=== PATIENT | male | born 1985 | race Caucasian/White ===

== ENCOUNTER 2017-04-05 22:47 | Inpatient (IN) | payer MEDICAID, OTHER ==
[2017-04-05] MEDS: Sodium Chloride 0.9% 10 ML Syringe FLUSH PRN (23:11)
[2017-04-05] MEDS ORDERED: Sodium Chloride 0.9% 1,000 ML IV SCH (23:15)
[2017-04-06] MEDS ORDERED: LORazepam 2 MG/ML MDV IVPUSH ONE (00:07)
--- NOTE | 2017-04-06 00:50 | EDM.PDOC ---
ED HPI GENERAL MEDICAL PROBLEM - General Chief Complaint: Behavioral/Psych Stated Complaint: POISON INGESTION Time Seen by Provider: 04/05/17 22:53 Source of Information: Reports: Patient, RN Notes Reviewed - History of Present Illness INITIAL COMMENTS - FREE TEXT/NARRATIVE: 31-year-old male has been brought in by a family member after ingesting 2-4 ounces of insecticide. He does have long-standing history of depression. He states that she he's been feeling more depressed than usual recently. He admits that he did drink some alcohol last evening. The insecticide was from a bottle that they had at his residence. He also did tell one of our RNs that he did use methamphetamine yesterday. He denies being on any type of antidepressant or antipsychotic medication at this time. He has been feeling nauseated. He has had some dry heaves but has not vomited. He has no chest or abdominal pain. No difficulty breathing. He does feel mildly lightheaded and dizzy. - Related Data Allergies Allergy/AdvReac Type Severity Reaction Status Date / Time No Known Allergies Allergy Verified 04/05/17 22:49 Past Medical History - Past Health History Medical/Surgical History: Denies Medical/Surgical History Cardiovascular History: Reports: Hypertension, Other (See Below) Other Cardiovascular History: Enlarged L) ventricle. Psychiatric History: Reports: Anxiety, Depression - Past Surgical History GI Surgical History: Reports: Hernia Repair/Other Social & Family History - Tobacco Use Smoking Status *Q: Current Every Day Smoker Years of Tobacco use: 15 Packs/Tins Daily: 0.1 - Alcohol Use Days Per Week of Alcohol Use: 1 Number of Drinks Per Day: 6 Total Drinks Per Week: 6 - Recreational Drug Use Recreational Drug Use: Yes Drug Use in Last 12 Months: Yes Recreational Drug Type: Reports: Cocaine, Methamphetamine, Oxycodone ED ROS GENERAL - Review of Systems Review Of Systems: See Below Constitutional: Denies: Fever, Chills HEENT: Denies: Throat Pain, Vision Change Respiratory: Denies: Shortness of Breath, Wheezing, Pleuritic Chest Pain Cardiovascular: Denies: Chest Pain GI/Abdominal: Reports: Nausea, Vomiting (Dry heaves). Denies: Abdominal Pain Musculoskeletal: Denies: Neck Pain, Shoulder Pain, Back Pain, Muscle Pain Skin: Reports: No Symptoms Neurological: Reports: Dizziness. Denies: Numbness, Tingling, Trouble Speaking Psychiatric: Reports: Depression, Suicidal Ideation ED EXAM, BEHAVIORAL HEALTH - Physical Exam Exam: See Below General Appearance: Alert, Anxious (My), Other (Intoxicated) Eye Exam: Bilateral Eye: PERRL Nose: Normal Inspection Throat/Mouth: Normal Inspection, Normal Oropharynx Head: Atraumatic. No: Facial Swelling Neck: Supple Respiratory/Chest: No Respiratory Distress, Lungs Clear, Normal Breath Sounds Cardiovascular: Regular Rate, Rhythm, Tachycardia GI/Abdominal: Soft, Non-Tender. No: Guarding Extremities: No: Pedal Edema, Leg Pain Neurological: Alert, No Motor/Sensory Deficits, Other (Intoxicated but not super drowsy, he does answer simple questions and cooperative with exam) Psychiatric: Alert, Restless, Tearful, Suicidal Thoughts (States he would feel better if he could just go to sleep and not wake up) Skin Exam: Warm, Dry, Normal color EKG INTERPRETATION EKG Date: 04/05/17 Rhythm: NSR [place]: normal P-wave: present QRS: normal ST-T: normal COURSE, BEHAVIORAL HEALTH COMP - Course Vital Signs: Last Vital Signs Temp 96.8 F 04/05/17 22:50 Pulse 107 H 04/05/17 22:50 Resp 18 04/05/17 22:50 BP 140/94 H 04/05/17 22:50 Pulse Ox 98 04/05/17 22:50 Orders, Labs, Meds: Active Orders 24 hr Category Date Time Status Admission Status [Patient Status] [ADT] Routine ADT 04/06/17 01:15 Active EKG 12 Lead [EKG Documentation Completion] [RC] STAT Care 04/05/17 23:00 Active Chest 1V Frontal [CR] Stat Exams 04/05/17 23:00 Taken DRUG SCREEN, URINE [URCHEM] Stat Lab 04/05/17 02:26 Received Sodium Chloride 0.9% [Normal Saline] 1,000 ml Med 04/05/17 23:15 Active IV ONETIME Sodium Chloride 0.9% [Normal Saline] 1,000 ml Med 04/06/17 01:00 Active IV ONETIME Sodium Chloride 0.9% [Saline Flush] Med 04/05/17 23:02 Active 10 ml FLUSH ASDIRECTED PRN Peripheral IV Insertion Adult [OM.PC] Stat Oth 04/05/17 23:01 Ordered Medication Orders Sodium Chloride (Normal Saline) 1,000 mls @ 999 mls/hr IV ONETIME TEDDY Last Admin: 04/05/17 23:09 Dose: 999 mls/hr Sodium Chloride (Normal Saline) 1,000 mls @ 999 mls/hr IV ONETIME TEDDY Last Admin: 04/06/17 00:57 Dose: 999 mls/hr Sodium Chloride (Normal Saline) 1,000 mls @ 150 mls/hr IV ASDIRECTED TEDDY Lorazepam (Ativan) 1 mg IVPUSH Q4H PRN PRN Reason: Anxiety Sodium Chloride (Saline Flush) 10 ml FLUSH ASDIRECTED PRN PRN Reason: Keep Vein Open Last Admin: 04/05/17 23:11 Dose: 10 ml Laboratory Tests 04/05/17 04/05/17 04/05/17 Range/Units 02:26 23:17 23:17 WBC 11.57 H (4.23-9.07) K/mm3 RBC 5.06 (4.63-6.08) M/mm3 Hgb 15.9 (13.7-17.5) gm/L Hct 45.9 (40.1-51.0) % MCV 90.7 (79.0-92.2) fl MCH 31.4 (25.7-32.2) pg MCHC 34.6 (32.2-35.5) g/dl RDW Std Deviation 41.3 (35.1-43.9) fL Plt Count 330 (163-337) K/mm3 MPV 10.0 (9.4-12.3) fl Neut % (Auto) 44.5 (34.0-67.9) % Lymph % (Auto) 45.5 (21.8-53.1) % [place] % (Auto) 8.4 (5.3-12.2) % Eos % (Auto) 1.1 (0.8-7.0) Baso % (Auto) 0.3 (0.1-1.2) % Neut # (Auto) 5.15 (1.78-5.38) K/mm3 Lymph # (Auto) 5.26 H (1.32-3.57) K/mm3 [place] # (Auto) 0.97 H (0.30-0.82) K/mm3 Eos # (Auto) 0.13 (0.04-0.54) K/mm3 Baso # (Auto) 0.04 (0.01-0.08) K/mm3 Manual Slide Review Normal smear Sodium 143 (136-145) mEq/L Potassium 3.8 (3.5-5.1) mEq/L Chloride 106 (98-107) mEq/L Carbon Dioxide 24 (21-32) mEq/L Anion Gap 16.8 H (5-15) BUN 10 (7-18) mg/dL Creatinine 1.1 (0.7-1.3) mg/dL Est Cr Clr Drug Dosing 105.82 mL/min Estimated GFR (MDRD) > 60 (>60) mL/min BUN/Creatinine Ratio 9.1 L (14-18) Glucose 100 (74-106) mg/dL Lactic Acid (0.4-2.0) mmol/L Calcium 8.6 (8.5-10.1) mg/dL Total Bilirubin 0.7 (0.2-1.0) mg/dL AST 29 (15-37) U/L ALT 43 (16-63) U/L Alkaline Phosphatase 61 (46-116) U/L Total Protein 7.4 (6.4-8.2) g/dl Albumin 4.0 (3.4-5.0) g/dl Globulin 3.4 gm/dL Albumin/Globulin Ratio 1.2 (1-2) Urine Color Light yellow (Yellow) Urine Appearance Clear (Clear) Urine pH 6.0 (5.0-8.0) Ur Specific [place] 1.015 (1.005-1.030) Urine Protein Negative (Negative) Urine Glucose (UA) Negative (Negative) Urine Ketones Negative (Negative) Urine Occult Blood Negative (Negative) Urine Nitrite Negative (Negative) Urine Bilirubin Negative (Negative) Urine Urobilinogen 0.2 (0.2-1.0) Ur Leukocyte Esterase Negative (Negative) Ethyl Alcohol 0.20 (0.00) gm% // Range/Units 23:17 WBC (4.23-9.07) K/mm3 RBC (4.63-6.08) M/mm3 Hgb (13.7-17.5) gm/L Hct (40.1-51.0) % MCV (79.0-92.2) fl MCH (25.7-32.2) pg MCHC (32.2-35.5) g/dl RDW Std Deviation (35.1-43.9) fL Plt Count (163-337) K/mm3 MPV (9.4-12.3) fl Neut % (Auto) (34.0-67.9) % Lymph % (Auto) (21.8-53.1) % [place] % (Auto) (5.3-12.2) % Eos % (Auto) (0.8-7.0) Baso % (Auto) (0.1-1.2) % Neut # (Auto) (1.78-5.38) K/mm3 Lymph # (Auto) (1.32-3.57) K/mm3 [place] # (Auto) (0.30-0.82) K/mm3 Eos # (Auto) (0.04-0.54) K/mm3 Baso # (Auto) (0.01-0.08) K/mm3 Manual Slide Review Sodium (136-145) mEq/L Potassium (3.5-5.1) mEq/L Chloride (98-107) mEq/L Carbon Dioxide (21-32) mEq/L Anion Gap (5-15) BUN (7-18) mg/dL Creatinine (0.7-1.3) mg/dL Est Cr Clr Drug Dosing mL/min Estimated GFR (MDRD) (>60) mL/min BUN/Creatinine Ratio (14-18) Glucose (74-106) mg/dL Lactic Acid 1.6 (0.4-2.0) mmol/L Calcium (8.5-10.1) mg/dL Total Bilirubin (0.2-1.0) mg/dL AST (15-37) U/L ALT (16-63) U/L Alkaline Phosphatase (46-116) U/L Total Protein (6.4-8.2) g/dl Albumin (3.4-5.0) g/dl Globulin gm/dL Albumin/Globulin Ratio (1-2) Urine Color (Yellow) Urine Appearance (Clear) Urine pH (5.0-8.0) Ur Specific [place] (1.005-1.030) Urine Protein (Negative) Urine Glucose (UA) (Negative) Urine Ketones (Negative) Urine Occult Blood (Negative) Urine Nitrite (Negative) Urine Bilirubin (Negative) Urine Urobilinogen (0.2-1.0) Ur Leukocyte Esterase (Negative) Ethyl Alcohol (0.00) gm% Medications Generic Name Dose Route Start Last Admin Trade Name Freq PRN Reason Stop Dose Admin Sodium Chloride 1,000 mls @ 999 mls/hr 04/05/17 23:15 04/05/17 23:09 Normal Saline IV 999 mls/hr ONETIME TEDDY Administration Sodium Chloride 1,000 mls @ 999 mls/hr 04/06/17 01:00 04/06/17 00:57 Normal Saline IV 999 mls/hr ONETIME TEDDY Administration Sodium Chloride 1,000 mls @ 150 mls/hr 04/06/17 02:45 Normal Saline IV ASDIRECTED TEDDY Lorazepam 1 mg 04/06/17 02:46 Ativan IVPUSH Q4H PRN Anxiety Sodium Chloride 10 ml 04/05/17 23:02 04/05/17 23:11 Saline Flush FLUSH 10 ml ASDIRECTED PRN Administration Keep Vein Open Discontinued Medications Generic Name Dose Route Start Last Admin Trade Name Freq PRN Reason Stop Dose Admin Lorazepam 1 mg 04/06/17 00:07 04/06/17 00:15 Ativan IVPUSH 04/06/17 00:08 1 mg ONETIME ONE Administration Re-Assessment/Re-Exam: Vital signs remained stable while in the ED. We did contact poison control regarding the insecticide that he ingested. The active ingredient off of the label of the insecticide container was bifenthrin, 6.9%. They indicate that the overall toxicity is relatively low for this product. The main risk is seizures. The greatest risk is in the first one or 2 hours. He presented to our ED approximately 2-3 hours after ingesting this product. We watched him for around 2 hours before arranging for admission. Of note blood alcohol was 0.2%. Anion gap very mildly elevated, labs otherwise normal. He continued to have no chest pain, difficulty breathing. He did have a couple episodes of dry heaves but never did vomit. When asked about depression and suicidal radiation he became tearful, stated he would just like to go to sleep and "not wake up". He did become agitated and threatened to leave on one occasion. We did give Ativan 1 mg IV and that did help him relax. We also have been running IV fluid. He was on his second liter at time of admission. When I did discuss with him the need for hospital admission to allow the insecticide to metabolize out of his system he was okay with that. I did write for a 24-hour emergency alf due to possible flight risk. He has been admitted to ICU for further monitoring and treatment. Departure - Departure Time of Disposition: 01:00 Disposition: Admitted As Inpatient 65 Clinical Impression: Suicide attempt Alcohol intoxication Qualifiers: Complication of substance-induced condition: uncomplicated Qualified Code(s): F10.920 - Alcohol use, unspecified with intoxication, uncomplicated Ingestion of foreign substance Qualifiers: Encounter type: initial encounter Qualified Code(s): T18.9XXA - Foreign body of alimentary tract, part unspecified, initial encounter - Discharge Information ED Communication - Discussed Case With (1) Discussed Case With (1): Admitting Provider (Dr Bell, decision to admit at about 0100) - My Orders Last 24 Hours: My Active Orders 04/05/17 02:26 DRUG SCREEN, URINE [URCHEM] Stat 04/05/17 23:00 EKG 12 Lead [EKG Documentation Completion] [RC] STAT Chest 1V Frontal [CR] Stat 04/05/17 23:01 Peripheral IV Insertion Adult [OM.PC] Stat 04/05/17 23:02 Sodium Chloride 0.9% [Saline Flush] 10 ml FLUSH ASDIRECTED PRN 04/05/17 23:15 Sodium Chloride 0.9% [Normal Saline] 1,000 ml IV ONETIME 04/06/17 01:00 Sodium Chloride 0.9% [Normal Saline] 1,000 ml IV ONETIME 04/06/17 01:15 Admission Status [Patient Status] [ADT] Routine - Assessment/Plan Last 24 Hours: My Active Orders 04/05/17 02:26 DRUG SCREEN, URINE [URCHEM] Stat 04/05/17 23:00 EKG 12 Lead [EKG Documentation Completion] [RC] STAT Chest 1V Frontal [CR] Stat 04/05/17 23:01 Peripheral IV Insertion Adult [OM.PC] Stat 04/05/17 23:02 Sodium Chloride 0.9% [Saline Flush] 10 ml FLUSH ASDIRECTED PRN 04/05/17 23:15 Sodium Chloride 0.9% [Normal Saline] 1,000 ml IV ONETIME 04/06/17 01:00 Sodium Chloride 0.9% [Normal Saline] 1,000 ml IV ONETIME 04/06/17 01:15 Admission Status [Patient Status] [ADT] Routine
[2017-04-06] MEDS ORDERED: Sodium Chloride 0.9% 1,000 ML IV SCH ×2 (01:00→02:45)
[2017-04-06] MEDS ORDERED: LORazepam 2 MG/ML MDV IVPUSH PRN (02:46)
--- NOTE | 2017-04-06 04:12 | PCM.HP ---
H&P History of Present Illness - General Date of Service: 04/06/17 Admit Problem/Dx: AMS and Attempted Suicide by Ingestion of Toxic Substance Source of Information: Patient, Old Records, Provider, RN Notes Reviewed History Limitations: Reports: Altered Mental Status, Intoxication - History of Present Illness Initial Comments - Free Text/Narative: This is a 31 yo white male with no significant past medical hx/o who comes in to ED for further evaluation after ingesting 2-4 ounces of insecticide. The chemical he took was presumed to be something they have at home. Patient admits to taking Clonazepam and washing it down with ETOH. He had 2 shots of fireball last night. It however unclear how bad and how long is his drinking habit. In ED he reports dry heaving, dizziness and having lightheadedness. Patient carries a long standing hx/o MDD. He denies being on any psychotropic medications. He also does not follow anyone for his underlying psychiatric illness. Per ED notes, he also admits to taking methamphetamine yesterday. No family members present at bedside at the time of my examination. His initial work up in ED shows a CBC remarkable for WBC 11.57. His chemistry is significant for AG 16.8. UA was negative to suggest UTI. His UDS shows pos for Amphetamine/Methamphetamine and THC. ISIDORO level is 0.20. CXR report reads no acute abnormal findings. Patient received initial treatment in ED before he was sent to the unit for further treatment. Poison control was also consulted for further input. He was admitted sometime midnight. - Related Data Allergies/Adverse Reactions: Allergies Allergy/AdvReac Type Severity Reaction Status Date / Time No Known Allergies Allergy Verified 04/05/17 22:49 Past Medical History - Past Health History Medical/Surgical History: Denies Medical/Surgical History Cardiovascular History: Reports: Hypertension, Other (See Below) Other Cardiovascular History: Enlarged L) ventricle. Psychiatric History: Reports: Anxiety, Depression - Past Surgical History GI Surgical History: Reports: Hernia Repair/Other Social & Family History - Tobacco Use Smoking Status *Q: Current Every Day Smoker Years of Tobacco use: 15 Packs/Tins Daily: 0.1 Second Hand Smoke Exposure: No - Caffeine Use Caffeine Use: Reports: Tea - Alcohol Use Days Per Week of Alcohol Use: 1 Number of Drinks Per Day: 6 Total Drinks Per Week: 6 Date of Last Drink: 04/05/17 Time of Last Drink: 19:00 - Recreational Drug Use Recreational Drug Use: Yes Drug Use in Last 12 Months: Yes Recreational Drug Type: Reports: Cocaine, Methamphetamine, Oxycodone Recreational Drug Use Frequency: Monthly Recreational Drug Last Use: 04/04/17 H&P Review of Systems - Review of Systems: Review Of Systems: See Below General: Reports: Diaphoresis. Denies: Fever, Chills HEENT: Denies: Contact Lenses Pulmonary: Denies: Shortness of Breath Cardiovascular: Reports: Blood Pressure Problem. Denies: Chest Pain, Edema, Lightheadedness, Syncope Gastrointestinal: Denies: Abdominal Pain, Nausea, Vomiting Genitourinary: Reports: No Symptoms Musculoskeletal: Reports: No Symptoms Skin: Denies: Cyanosis, Jaundice, Pallor, Pruritis, Rash, Erythema Psychiatric: Reports: Suicidal Ideation. Denies: Confusion, Anxiety, Hallucinations, Homicidal Ideation Neurological: Reports: Weakness. Denies: Difficulty Walking, Gait Disturbance Hematologic/Lymphatic: Reports: No Symptoms Immunologic: Reports: No Symptoms Review of Systems Comment:: He is a poor historian. Exam - Exam Exam: See Below - Vital Signs Vital Signs: Last Vital Signs Temp 36.0 C 04/05/17 22:50 Pulse 107 H 04/05/17 22:50 Resp 18 04/05/17 22:50 BP 140/94 H 04/05/17 22:50 Pulse Ox 98 04/05/17 22:50 Weight: 119.295 kg - Exam General: Moderate Distress, Sedated, Other (Awake) HEENT: Conjunctiva Clear, EACs Clear, Hearing Intact, Mucosa Moist & [place], Nares Patent, Normal Nasal Septum, Posterior Pharynx Clear, Pupils Equal, Pupils Reactive, Other (stutters when he talks). No: EOMI Neck: Supple, Trachea Midline Lungs: Clear to Auscultation, Normal Respiratory Effort Cardiovascular: Regular Rhythm, Tachycardia Abdomen: Normal Bowel Sounds, Soft. No: Organomegaly, Tenderness (Male) Exam: Deferred Rectal (Males) Exam: Deferred Back Exam: Normal Inspection, Decreased Range of Motion Extremities: Normal Inspection, Normal Pulses Peripheral Pulses: 3+: Posterior Tibial (L), Posterior Tibial (R), Dorsalis Pedis (L), Dorsalis Pedis (R) Skin: Warm, Dry, Intact Neuro Extensive - Motor, Sensory, Reflexes: CN II-XII Intact (limited by AMS), Abnormal Gait Psychiatric: Withdrawal Symptoms, Other (Incoherent) Physical Exam Comments:: Limited exam due to AMS and Withdrawal Symptoms - Patient Data Result Diagrams: 04/06/17 05:35 04/06/17 12:10 EKG INTERPRETATION EKG Date: 04/05/17 Time: 11:10 Rhythm: NSR [place]: normal P-wave: present QRS: normal ST-T: normal QT: prolonged Comparison: NA - no prior EKG *Q Meaningful Use (ADM) - VTE *Q VTE Criteria *Q: - Stroke *Q Stroke Criteria *Q: - AMI *Q AMI Criteria *Q: Problem List Initiated/Reviewed/Updated: Yes Orders Last 24hrs: Active Orders 24 hr Category Date Time Status Up With Assistance [RC] , Care 04/06/17 02:43 Active Clear Liquid Diet [DIET] Diet 04/06/17 Breakfast Active LORazepam [Ativan] Med 04/06/17 02:46 Active 1 mg IVPUSH Q4H PRN Sodium Chloride 0.9% [Normal Saline] 1,000 ml Med 04/06/17 02:45 Active IV ASDIRECTED Medication Orders Sodium Chloride (Normal Saline) 1,000 mls @ 999 mls/hr IV ONETIME TEDDY Last Admin: 04/05/17 23:09 Dose: 999 mls/hr Sodium Chloride (Normal Saline) 1,000 mls @ 999 mls/hr IV ONETIME TEDDY Last Admin: 04/06/17 00:57 Dose: 999 mls/hr Sodium Chloride (Normal Saline) 1,000 mls @ 150 mls/hr IV ASDIRECTED TEDDY Lorazepam (Ativan) 1 mg IVPUSH Q4H PRN PRN Reason: Anxiety Sodium Chloride (Saline Flush) 10 ml FLUSH ASDIRECTED PRN PRN Reason: Keep Vein Open Last Admin: 04/05/17 23:11 Dose: 10 ml Assessment/Plan Comment:: Assessment/Plan: Acute Suicide Attempt via Ingestion of Toxic Substance - 2-4 ounces of insecticide - Poison control consulted - Supportive Care Probable Organo-Phosphate Poisoning - Supportive Care - He received bedside bath per overnight nurse to remove further organic substance on him - Atropin IVP PNR for Symptomatic control - Pharmacy don't carry Pralidoxime plus unable to get ahold of on-call local pharmacy ETOH Withdrawal Symptoms - ISIDORO level 0.20 - He usually drinks 3-6 beers QOD but drank 2 shots of fire ball per patient - CIWA protocol - Seroquel/Librium/Clonidine/Topamax - Hydralzine and IVP BB for HR/BP control - Ativan for Abortive Seizure and Withdrawal Symptoms Poly-Substance Abuse - UDS: pos Amphetamine/Methamphetamine and THC - Admits to taking Clonazepam 5mg x1 plus ETOH last evening - SA consult Tobacco Dependence - Nicotine patch - Counseled on Smoking Cessation Hx/o MDD - Unknown if he is on any psychotropic medications at this time - No family members present at bedside - Tele-psych consult Seizures - Has had 2 episode already per nurse - Likely from combination above - Seizure precautions - Topamax for prevention - Ativan for Abortive Medication Plan: Admit to ICU MVI, Folic, Acid and Thiamine CIWA protocol Ativan for Abortive Seizure and Withdrawal Symptoms PRN meds for Withdrawal Symptoms Aspiration/Seizure Precautions SW/CM d/c planning SA/Pysch consult Code Status: 1 ICU nurse called me very scraper loader operator to come and see him immediately as he appears to be getting worse. His current prognosis is guarded to serious due to unknown type of farm/house chemical he took +/- Amphetamine/Methamphetamine and ETOH he took concomitantly. He is a very poor historian.
[2017-04-06] MEDS ORDERED: Atropine 0.1 MG/ML 10 ML Syringe ONE (04:19)
[2017-04-06] MEDS ORDERED: Promethazine 12.5 MG in Sodium Chloride 0.9% 50 ML IV PRN (04:36)
[2017-04-06] MEDS ORDERED: Albuterol/Ipratropium 3.0-0.5 MG/3 ML Neb Soln NEB PRN (04:36)
[2017-04-06] MEDS ORDERED: Polyethylene Glycol 3350 Powder 17 GM Packet PO PRN (04:36)
[2017-04-06] MEDS ORDERED: Acetaminophen/HYDROcodone 325-5 MG Tab PO PRN (04:36)
[2017-04-06] MEDS ORDERED: Bisacodyl 5 MG Tab PO PRN (04:36)
[2017-04-06] MEDS ORDERED: Docusate Sodium 100 MG Cap PO PRN (04:36)
[2017-04-06] MEDS ORDERED: Metoprolol Tartrate 5 MG/5 ML SDV IVPUSH PRN (04:36)
[2017-04-06] MEDS ORDERED: hydrALAZINE 20 MG/ML SDV IVPUSH PRN (04:36)
[2017-04-06] MEDS ORDERED: Acetaminophen 325 MG Tab PO PRN (04:36)
[2017-04-06] MEDS ORDERED: Folic Acid 1 MG Tab PO ONE (04:40)
[2017-04-06] MEDS ORDERED: Multivitamins,Therapeutic Tab PO ONE (04:40)
[2017-04-06] MEDS ORDERED: Thiamine 200 MG/2 ML MDV IV ONE (04:41)
[2017-04-06] MEDS ORDERED: Atropine 0.1 MG/ML 10 ML Syringe IVPUSH ONE (04:41)
[2017-04-06] MEDS ORDERED: QUEtiapine 25 MG Tab PO ONE (04:43)
[2017-04-06] MEDS ORDERED: chlordiazePOXIDE 25 MG Cap PO ONE (04:44)
[2017-04-06] MEDS ORDERED: cloNIDine 0.1 MG Tab PO PRN (04:46)
[2017-04-06] MEDS ORDERED: Famotidine 20 MG/2 ML SDV IVPUSH ONE (04:47)
[2017-04-06] MEDS ORDERED: Famotidine 20 MG Tab PO SCH (05:00)
[2017-04-06] MEDS ORDERED: Pneumococcal Polyvalent-23 Vaccine 0.5 ML SDV SUBCUT ONE (06:04)
[2017-04-06] MEDS ORDERED: Magnesium Oxide 400 MG Tab PO ONE (07:15)
[2017-04-06] MEDS: Enoxaparin 40 MG/0.4 ML Syringe SUBCUT SCH ×2 (07:33→07:53)
[2017-04-06] MEDS: Topiramate 25 MG Tab PO SCH ×3 (07:51→20:32)
[2017-04-06] MEDS: Ondansetron 4 MG/2 ML SDV IV PRN ×2 (07:52→13:58)
[2017-04-06] MEDS: LORazepam 2 MG/ML MDV IVPUSH PRN ×6 (07:52→18:46)
[2017-04-06] MEDS: Sodium Chloride 0.9% 1,000 ML IV SCH ×2 (08:14→12:32)
--- NOTE | 2017-04-06 09:24 | CR ---
Chest: Frontal view of the chest was obtained. Comparison: No previous chest x-ray. Heart size and mediastinum are normal. Lungs are clear. Bony structures are grossly intact. Impression: 1. Nothing acute is identified on frontal chest x-ray. Diagnostic code #1
[2017-04-06] MEDS: chlordiazePOXIDE 25 MG Cap PO PRN (10:12)
--- NOTE | 2017-04-06 11:41 | PCM.SN ---
- Free Text/Narrative Note: Patient is not doing well clinically. He is severely agitated with tremors and vitals are unstable with significantly elevated BP and HR. He is profusely soaked and wet. His mentation is altered with mumbled speech. He has had a few seizure activities since front desk representative. Patient is in severe withdrawals (DT). At this point, he needs to have a stat respiratory support. After talking to his mom and informing her our plan of care at this moment, patient was then immediately intubated.
--- NOTE | 2017-04-06 11:43 | CR ---
Chest: Frontal view of the chest was obtained. Comparison: Previous chest x-ray 04/05/17. Heart size and mediastinum are within normal limits for technique. Endotracheal tube is seen with tip lying at the level of the clavicles. Nasogastric tube courses through the mediastinum into the stomach. Lungs are clear. Impression: 1. Tip of endotracheal tube and nasogastric tube as noted above. 2. Nothing acute is otherwise seen on frontal chest x-ray. Diagnostic code #w
--- NOTE | 2017-04-06 11:45 | PCM.PRNOTE ---
- Free Text/Narrative Note: Endotracheal Intubation Date: 04/06/2017 Time: 118 pm Indication: Respiratory Distress, Seizures and Severe Agitation. Attending: Renetta Bell DO A time-out was completed verifying correct patient, procedure, site, positioning , and special equipment if applicable. The patient was placed in a flat position. Sedation was obtained using Versed 5mg, and additionally with Rocuronium 100 mg. The patient was easily ventilated using an ambu bag. The MAC 4 BLADE was used and inserted into the oropharynx at which time there was a Grade 1 view of the vocal cords. An 8-maldivian endotracheal tube was inserted and visualized going through the vocal cords. The stylette was removed. Colorimetric change was visualized on the CO2 meter. Breath sounds were heard in both lung perdomo equally. The endotracheal tube was placed at 23 cm, measured at the teeth. A chest x-ray was ordered to assess for pneumothorax and verify endotrachealtube placement.
[2017-04-06] MEDS ORDERED: Rocuronium 50 MG/5 ML Vial IVPUSH ONE (12:51)
[2017-04-06] MEDS ORDERED: Midazolam 1 MG/ML 5 ML SDV IVPUSH ONE (12:51)
[2017-04-06] MEDS ORDERED: fentaNYL 2,500 MCG in Sodium Chloride 0.9% 200 ML IV SCH (13:00)
[2017-04-06] MEDS ORDERED: Magnesium Sulfate/Water 2 GM in Premix Bag 1 BAG IV ONE (13:39)
[2017-04-06] MEDS ORDERED: Midazolam 1 MG/ML 5 ML SDV ONE (14:00)
[2017-04-06] MEDS ORDERED: Rocuronium 50 MG/5 ML Vial ONE (14:00)
[2017-04-06] MEDS: Dextrose 5%-0.9% NaCl 1,000 ML IV SCH ×2 (16:32→20:31)
[2017-04-06] MEDS ORDERED: Thiamine 100 MG in Sodium Chloride 0.9% 100 ML IV ONE (17:33)
[2017-04-06] MEDS: Pantoprazole 80 MG in Sodium Chloride 0.9% 100 ML IV SCH (20:31)
[2017-04-06] MEDS: Famotidine 20 MG/2 ML SDV IVPUSH SCH (20:32)
[2017-04-06] MEDS ORDERED: Thiamine 100 MG Tab PO SCH (21:00)
[2017-04-07] MEDS: Dextrose 5%-0.9% NaCl 1,000 ML IV SCH ×2 (00:34→04:22)
--- NOTE | 2017-04-07 07:05 | PCM.PN ---
- General Info Date of Service: 04/07/17 Admission Dx/Problem (Free Text): AMS and Attempted Suicide by Ingestion of Toxic Substance Subjective Update: Follow up Functional Status: Reports: pain controlled, new symptoms - Review of Systems General: Denies: Fever, Chills HEENT: Reports: no symptoms Pulmonary: Denies: shortness of breath Cardiovascular: Denies: Chest Pain Gastrointestinal: Denies: Abdominal pain, Nausea, Vomiting Genitourinary: Reports: no symptoms Musculoskeletal: Reports: no symptoms Skin: Reports: no symptoms Systems Review Comment:: Patient is moderately sedated and mechanically intubated. - Patient Data Vitals - most recent: Last Vital Signs Temp 36.3 C 04/07/17 04:00 Pulse 91 04/06/17 18:00 Resp 15 04/07/17 06:10 BP 129/82 04/07/17 04:00 Pulse Ox 100 04/07/17 06:10 Weight - most recent: 116.12 kg I&O - last 24 hours: Intake & Output 04/06/17 04/07/17 04/07/17 22:59 06:59 14:59 Intake Total 1150 3513 Output Total 1410 1550 Balance -260 1963 Lab Results last 24 hrs: Laboratory Results - last 24 hr 04/06/17 04/06/17 04/06/17 Range/Units 11:33 12:10 12:30 Puncture Site Rt radial Rt radial ABG pH 7.27 L 7.31 L (7.35-7.45) ABG pCO2 43.2 39.6 (35.0-45.0) mmHg ABG pO2 99.0 113.0 H (80.0-100.0) mmHg ABG HCO3 19.1 L 19.3 L (22.0-26.0) meq/L ABG O2 Saturation 98.3 H 98.8 H (96.0-97.0) % ABG Base Excess -7.1 L -6.1 L (-2-2.0) A-a Gradient 167 157 mmHg O2 Delivery Device Ventilator Ventilator FiO2 50.00 50.00 (21.00-100.00) % Tidal Volume 650.0 650.0 cc PEEP 5.0 5.0 cmH20 Sodium 143 (136-145) mEq/L Potassium 4.0 (3.5-5.1) mEq/L Chloride 110 H (98-107) mEq/L Carbon Dioxide 22 (21-32) mEq/L Anion Gap 15.0 (5-15) BUN 7 (7-18) mg/dL Creatinine 0.9 (0.7-1.3) mg/dL Est Cr Clr Drug Dosing 129.33 mL/min Estimated GFR (MDRD) > 60 (>60) mL/min BUN/Creatinine Ratio 7.8 L (14-18) Glucose 122 H (74-106) mg/dL Calcium 8.2 L (8.5-10.1) mg/dL Magnesium 1.6 L (1.8-2.4) mg/dl Med Orders - Current: Current Medications Acetaminophen (Tylenol) 650 mg PO Q4H PRN PRN Reason: Pain (Mild 1-3)/fever Hydrocodone Bitart/Acetaminophen ([place] 325-5 Mg) 1 tab PO Q4H PRN PRN Reason: Pain (moderate 4-6) Albuterol/Ipratropium (Duoneb 3.0-0.5 Mg/3 Ml) 3 ml NEB Q4H PRN PRN Reason: Shortness Of Breath/wheezing Bisacodyl (Dulcolax) 5 mg PO DAILY PRN PRN Reason: Constipation Chlordiazepoxide HCl (Librium) 25 mg PO QID PRN PRN Reason: Withdrawal Symptoms Last Admin: 04/06/17 10:12 Dose: 25 mg Clonidine HCl (Catapres) 0.1 mg PO Q4H PRN PRN Reason: Agitation Docusate Sodium (Colace) 100 mg PO BID PRN PRN Reason: Constipation Famotidine (Pepcid) 20 mg IVPUSH BID [facility] Last Admin: 04/06/17 20:32 Dose: 20 mg Hydralazine HCl (Apresoline) 20 mg IVPUSH Q4H PRN PRN Reason: Hypertension Promethazine HCl 12.5 mg/ (Sodium Chloride) 50.5 mls @ 100 mls/hr IV Q6H PRN PRN Reason: Nausea/Vomiting Fentanyl 2,500 mcg/ Sodium (Chloride) 250 mls @ 11.9 mls/hr IV TITRATE TEDDY; 1 MCG/KG/HR PRN Reason: Protocol Propofol (Diprivan 100 Ml) 100 mls @ 3.57 mls/hr IV TITRATE TEDDY; 5 MCG/KG/MIN PRN Reason: Protocol Last Admin: 04/07/17 06:46 Dose: 45 mcg/kg/min, 32.13 mls/hr Pantoprazole Sodium 80 mg/ (Sodium Chloride) 100 mls @ 8 mls/hr IV Q10H [facility] Last Admin: 04/06/17 20:31 Dose: 8 mls/hr Lorazepam (Ativan) 2 mg IVPUSH Q4H PRN PRN Reason: Seizures Last Admin: 04/06/17 18:46 Dose: 1 mg Lorazepam (Ativan) 0 mg IVPUSH Q4H PRN; Protocol PRN Reason: Withdrawal Symptoms Last Admin: 04/06/17 18:07 Dose: 1 mg Magnesium Sulfate (Pharmacy To Dose - Magnesium Replacement) 1 dose .XX ASDIRECTED [facility] Metoprolol Tartrate (Lopressor) 5 mg IVPUSH Q4H PRN PRN Reason: Tachycardia Multivitamins (Thera) 1 each PO DAILY [facility] Ondansetron HCl (Zofran) 4 mg IV Q6H PRN PRN Reason: Nausea/Vomiting Last Admin: 04/06/17 13:58 Dose: 4 mg Polyethylene Glycol (Miralax) 17 gm PO DAILY PRN PRN Reason: Constipation Potassium Chloride (Pharmacy To Dose - Potassium Replacement) 1 dose .XX ASDIRECTED [facility] Senna/Docusate Sodium (Senna Plus) 1 tab PO BID PRN PRN Reason: Constipation Sodium Chloride (Saline Flush) 10 ml FLUSH ASDIRECTED PRN PRN Reason: Keep Vein Open Last Admin: 04/05/17 23:11 Dose: 10 ml Topiramate (Topamax) 25 mg PO BID [facility] Last Admin: 04/06/17 20:32 Dose: 25 mg Discontinued Medications Atropine Sulfate (Atropine 0.1 Mg/Ml) Confirm Administered Dose 2 mg .ROUTE .STK -MED ONE Stop: 04/06/17 04:20 Last Admin: 04/06/17 04:45 Dose: Not Given Atropine Sulfate (Atropine 0.1 Mg/Ml) 1 mg IVPUSH ONETIME ONE Stop: 04/06/17 04:42 Last Admin: 04/06/17 04:41 Dose: 1 mg Chlordiazepoxide HCl (Librium) 100 mg PO ONETIME ONE Stop: 04/06/17 04:45 Last Admin: 04/06/17 06:12 Dose: 100 mg Diazepam (Valium) Confirm Administered Dose 10 mg .ROUTE .STK-MED ONE Stop: 04/06/17 10:41 Last Admin: 04/06/17 10:52 Dose: 10 mg Diazepam (Valium) 10 mg IVPUSH ONETIME ONE Stop: 04/06/17 10:41 Last Admin: 04/06/17 10:41 Dose: 10 mg Enoxaparin Sodium (Lovenox) 40 mg SUBCUT DAILY [facility] Last Admin: 04/06/17 07:53 Dose: 40 mg Famotidine (Pepcid) 20 mg PO Q12H [facility] Last Admin: 04/06/17 06:40 Dose: Not Given Famotidine (Pepcid) 20 mg IVPUSH ONETIME ONE Stop: 04/06/17 04:48 Last Admin: 04/06/17 06:12 Dose: 20 mg Folic Acid (Folic Acid) 1 mg PO ONETIME ONE Stop: 04/06/17 04:41 Last Admin: 04/06/17 06:13 Dose: 1 mg Folic Acid (Folic Acid) 1 mg PO DAILY [facility] Sodium Chloride (Normal Saline) 1,000 mls @ 999 mls/hr IV ONETIME [facility] Last Admin: 04/05/17 23:09 Dose: 999 mls/hr Sodium Chloride (Normal Saline) 1,000 mls @ 999 mls/hr IV ONETIME [facility] Last Admin: 04/06/17 00:57 Dose: 999 mls/hr Sodium Chloride (Normal Saline) 1,000 mls @ 150 mls/hr IV ASDIRECTED [facility] Sodium Chloride (Normal Saline) 1,000 mls @ 250 mls/hr IV ASDIRECTED [facility] Last Admin: 04/06/17 12:32 Dose: 250 mls/hr Propofol (Diprivan 100 Ml) Confirm Administered Dose 100 mls @ as directed .ROUTE .STK-MED ONE Stop: 04/06/17 11:02 Last Admin: 04/06/17 12:44 Dose: Not Given Magnesium Sulfate 2 gm/ Premix 50 mls @ 25 mls/hr IV ONETIME ONE Stop: 04/06/17 15:38 Last Admin: 04/06/17 13:48 Dose: 25 mls/hr Dextrose/Sodium Chloride (Dextrose 5%-Normal Saline) 1,000 mls @ 250 mls/hr IV ASDIRECTED [facility] Last Admin: 04/07/17 04:22 Dose: 250 mls/hr Thiamine HCl 100 mg/ Sodium (Chloride) 101 mls @ 200 mls/hr IV DAILY ONE Stop: 04/06/17 18:03 Last Admin: 04/06/17 18:37 Dose: 200 mls/hr Lorazepam (Ativan) 1 mg IVPUSH ONETIME ONE Stop: 04/06/17 00:08 Last Admin: 04/06/17 00:15 Dose: 1 mg Lorazepam (Ativan) 1 mg IVPUSH Q4H PRN PRN Reason: Anxiety Last Admin: 04/06/17 04:00 Dose: 1 mg Magnesium Oxide (Magnesium Oxide) 400 mg PO ONETIME ONE Stop: 04/06/17 07:16 Last Admin: 04/06/17 07:30 Dose: Not Given Midazolam HCl (Versed 1 Mg/Ml) 5 mg IVPUSH ONETIME ONE Stop: 04/06/17 12:52 Last Admin: 04/06/17 11:13 Dose: 5 mg Multivitamins (Thera) 1 each PO ONETIME ONE Stop: 04/06/17 04:41 Last Admin: 04/06/17 06:13 Dose: 1 each Pneumococcal Polyvalent Vaccine (Pneumovax 23) 0.5 ml SUBCUT .ONCE ONE Stop: 04/06/17 06:05 Last Admin: 04/06/17 06:41 Dose: Not Given Quetiapine Fumarate (Seroquel) 50 mg PO ONETIME ONE Stop: 04/06/17 04:44 Last Admin: 04/06/17 06:13 Dose: 50 mg Rocuronium [place] (Zemuron) 100 mg IVPUSH ONETIME ONE Stop: 04/06/17 12:52 Last Admin: 04/06/17 11:14 Dose: 100 mg Thiamine HCl (Vitamin B-1) 100 mg PO BEDTIME [facility] Thiamine HCl (Vitamin B-1) 200 mg IV ONETIME ONE Stop: 04/06/17 04:42 Last Admin: 04/06/17 06:12 Dose: 200 mg - Exam General: sedated, other (intubated) HEENT: Pupils equal, Pupils reactive Neck: supple, trachea midline, no JVD Lungs: Clear to auscultation, Normal respiratory effort Cardiovascular: Regular Rate, Regular Rhythm Abdomen: bowel sounds present, soft, no tenderness, no distension (Male) Exam: Other (indwelling felix catheter) Back Exam: Other (deferred) Extremities: no edema, normal pulses, no tenderness/swelling, no clubbing, no cyanosis, no calf tenderness Peripheral Pulses: 3+: Posterior Tibial (L), Posterior Tibial (R), Dorsalis Pedis (L), Dorsalis Pedis (R) Skin: warm, dry, intact Neurological: other (abnormal upper and lower extremity movements (seems to be voluntary)) - Problem List Review Problem List Initiated/Reviewed/Updated: Yes - My Orders Last 24 Hours: My Active Orders 04/06/17 09:00 Topiramate [Topamax] 25 mg PO BID 04/06/17 12:40 Ventilator Assessment [RT Ventilator, Adult] [RC] ASDIRECTED 04/06/17 12:45 Propofol [Diprivan 100 ML] 100 ml IV TITRATE 04/06/17 13:00 fentaNYL [Sublimaze] 2,500 mcg Sodium Chloride 0.9% [Normal Saline] 200 ml IV TITRATE 04/06/17 17:42 Bedrest [RC] ASDIRECTED 04/06/17 19:34 Consult to Physician [CONS] Routine 04/06/17 19:35 Antiembolic Devices [RC] PER UNIT ROUTINE NAN Hose [Antiembolic Hose] [OM.PC] Routine 04/06/17 19:36 Notify Provider Consults [RC] ASDIRECTED 04/06/17 19:45 Pantoprazole [ProTONIX IV] 80 mg Sodium Chloride 0.9% [Normal Saline] 100 ml IV Q10H 04/06/17 21:00 Famotidine [Pepcid] 20 mg IVPUSH BID 04/06/17 Breakfast Nothing Per Oral Diet [DIET] 04/07/17 05:11 BASIC METABOLIC PANEL,BMP [CHEM] AM C-REACTIVE PROTEIN [CHEM] AM CBC WITH AUTO DIFF [HEME] AM MAGNESIUM [CHEM] AM 04/07/17 06:40 Chest 1V Frontal [CR] Routine ABG [BLOOD GAS ARTERIAL] [BG] Routine 04/07/17 06:41 Desired Level of Sedation (RASS) [AST] Click To Edit 04/07/17 08:00 RASS Sedation Scale [RC] Q4HR 04/07/17 09:00 Multivitamins,Therapeutic [Thera] 1 each PO DAILY 04/08/17 05:11 BASIC METABOLIC PANEL,BMP [CHEM] AM C-REACTIVE PROTEIN [CHEM] AM CBC WITH AUTO DIFF [HEME] AM MAGNESIUM [CHEM] AM 04/09/17 05:11 BASIC METABOLIC PANEL,BMP [CHEM] AM C-REACTIVE PROTEIN [CHEM] AM CBC WITH AUTO DIFF [HEME] AM MAGNESIUM [CHEM] AM 04/10/17 05:11 BASIC METABOLIC PANEL,BMP [CHEM] AM C-REACTIVE PROTEIN [CHEM] AM CBC WITH AUTO DIFF [HEME] AM MAGNESIUM [CHEM] AM - Plan Plan:: Assessment/Plan: Acute: Suicide Attempt via Ingestion of Toxic Substance - 2-4 ounces of insecticide - Poison control consulted - Supportive Care Probable Organo-Phosphate Poisoning - Supportive Care - He received bedside bath per overnight nurse to remove further organic substance on him - Atropin IVP PNR for Symptomatic control - Pharmacy don't carry Pralidoxime plus unable to get ahold of on-call local pharmacy ETOH with DTs - ISIDORO level 0.20 - He usually drinks 3-6 beers QOD but drank 2 shots of fire ball per patient - CIWA protocol - Seroquel/Librium/Clonidine/Topamax - Hydralzine and IVP BB for HR/BP control - Ativan for Abortive Seizure and Withdrawal Symptoms Poly-Substance Abuse - UDS: pos Amphetamine/Methamphetamine and THC - Admits to taking Clonazepam 5mg x1 plus ETOH last evening - SA consult Tobacco Dependence - Nicotine patch - Counseled on Smoking Cessation Upper GI Bleed - Protonix Drip - Consulted Dr. Ritter for further eval - Routine saline flush and suctioning to prevent blood clot formation in OG tube Hx/o MDD - Unknown if he is on any psychotropic medications at this time - No family members present at bedside - Tele-psych consult Seizures - Has had 2 episode already per nurse - Likely from combination above - Seizure precautions - Topamax for prevention - Ativan for Abortive Medication Plan: He remains in serious-critical condition Continue: CIWA Protocol, MVI, Folic, Acid and Thiamine Ativan for Abortive Seizure and Withdrawal Symptoms PRN meds for Withdrawal Symptoms Aspiration/Seizure Precautions SW/CM d/c planning SA/Psych consult once extubated Code Status: 1
[2017-04-07] MEDS ORDERED: Bumetanide 1 MG/4 ML MDV IVPUSH ONE ×2 (08:20→21:53)
[2017-04-07] MEDS ORDERED: Dextrose 5%-0.9% NaCl 1,000 ML IV SCH (08:30)
[2017-04-07] MEDS: Pantoprazole 80 MG in Sodium Chloride 0.9% 100 ML IV SCH ×2 (08:33→19:52)
[2017-04-07] MEDS: Thiamine 200 MG/2 ML MDV IVPUSH SCH (08:40)
[2017-04-07] MEDS: Famotidine 20 MG/2 ML SDV IVPUSH SCH (08:41)
[2017-04-07] MEDS: Multivitamins,Therapeutic Tab PO SCH (08:41)
[2017-04-07] MEDS: Folic Acid 1 MG Tab PO SCH (08:41)
[2017-04-07] MEDS: Topiramate 25 MG Tab PO SCH ×3 (08:41→20:43)
[2017-04-07] MEDS ORDERED: Folic Acid 1 MG Tab PO SCH (09:00)
--- NOTE | 2017-04-07 09:23 | CR ---
Chest: Frontal view of the chest is obtained. Comparison: Previous chest x-ray of 04/06/17. Heart size and mediastinum are within normal limits. Slightly prominent right paratracheal soft tissues are seen in the region of the azygos vein which is more noticeable on current exam due to slight differences in rotation on prior exam. Chest CT is probably warranted at some time to further evaluate. Mild atelectasis noted within the right lung base. Lungs otherwise are clear. Bony structures are unremarkable. Tip of endotracheal tube lies at the upper level of the clavicles. Nasogastric tube courses through the inferior edge of the film into the stomach. Impression: 1. Slightly prominent soft tissues within the region of the azygos vein as described above. Chest CT recommended at sometime in the future to further evaluate. 2. Tip of endotracheal tube at the upper level of clavicles. Nasogastric tube courses off the inferior edge of the film into the stomach. 3. Mild right basilar atelectasis. Diagnostic code #3
--- NOTE | 2017-04-07 14:18 | PCM.CONSN ---
- General Info Date of Service: 04/07/17 - Patient Data Vitals - most recent: Last Vital Signs Temp 99.6 F 04/07/17 12:00 Pulse 91 04/06/17 18:00 Resp 22 H 04/07/17 12:00 BP 139/79 04/07/17 12:00 Pulse Ox 97 04/07/17 12:06 Weight - most recent: 116.12 kg I&O - last 24 hours: Intake & Output 04/06/17 04/07/17 04/07/17 23:59 07:59 15:59 Intake Total 1100 3513 Output Total 8596 892 7254 Balance -610 5433 -2860 Lab Results last 24 hrs: Laboratory Results - last 24 hr 04/07/17 04/07/17 04/07/17 Range/Units 06:40 07:07 07:07 WBC 15.64 H (4.23-9.07) K/mm3 RBC 4.41 L (4.63-6.08) M/mm3 Hgb 14.0 (13.7-17.5) gm/L Hct 42.0 (40.1-51.0) % MCV 95.2 H (79.0-92.2) fl MCH 31.7 (25.7-32.2) pg MCHC 33.3 (32.2-35.5) g/dl RDW Std Deviation 43.4 (35.1-43.9) fL Plt Count 245 (163-337) K/mm3 MPV 10.7 (9.4-12.3) fl Neut % (Auto) 66.2 (34.0-67.9) % Lymph % (Auto) 21.8 (21.8-53.1) % Hand % (Auto) 11.2 (5.3-12.2) % Eos % (Auto) 0.5 L (0.8-7.0) Baso % (Auto) 0.1 (0.1-1.2) % Neut # (Auto) 10.35 H (1.78-5.38) K/mm3 Lymph # (Auto) 3.41 (1.32-3.57) K/mm3 Hand # (Auto) 1.75 H (0.30-0.82) K/mm3 Eos # (Auto) 0.08 (0.04-0.54) K/mm3 Baso # (Auto) 0.02 (0.01-0.08) K/mm3 Manual Slide Review Normal smear Puncture Site Rt radial ABG pH 7.34 L (7.35-7.45) ABG pCO2 38.7 (35.0-45.0) mmHg ABG pO2 74.0 L (80.0-100.0) mmHg ABG HCO3 20.5 L (22.0-26.0) meq/L ABG O2 Saturation 96.4 (96.0-97.0) % ABG Base Excess -4.3 L (-2-2.0) A-a Gradient 70 mmHg O2 Delivery Device Ventilator FiO2 30.00 (21.00-100.00) % Tidal Volume 650.0 cc PEEP 5.0 cmH20 Sodium 143 (136-145) mEq/L Potassium 4.5 (3.5-5.1) mEq/L Chloride 113 H (98-107) mEq/L Carbon Dioxide 22 (21-32) mEq/L Anion Gap 12.5 (5-15) BUN 4 L (7-18) mg/dL Creatinine 0.9 (0.7-1.3) mg/dL Est Cr Clr Drug Dosing 129.33 mL/min Estimated GFR (MDRD) > 60 (>60) mL/min BUN/Creatinine Ratio 4.4 L (14-18) Glucose 109 H (74-106) mg/dL Calcium 8.0 L (8.5-10.1) mg/dL Magnesium 2.1 (1.8-2.4) mg/dl C-Reactive Protein 1.5 H* (<1.0) mg/dL Med Orders - Current: Current Medications Acetaminophen (Tylenol) 650 mg PO Q4H PRN PRN Reason: Pain (Mild 1-3)/fever Hydrocodone Bitart/Acetaminophen ([place] 325-5 Mg) 1 tab PO Q4H PRN PRN Reason: Pain (moderate 4-6) Albuterol/Ipratropium (Duoneb 3.0-0.5 Mg/3 Ml) 3 ml NEB Q4H PRN PRN Reason: Shortness Of Breath/wheezing Bisacodyl (Dulcolax) 5 mg PO DAILY PRN PRN Reason: Constipation Chlordiazepoxide HCl (Librium) 25 mg PO QID PRN PRN Reason: Withdrawal Symptoms Last Admin: 04/06/17 10:12 Dose: 25 mg Clonidine HCl (Catapres) 0.1 mg PO Q4H PRN PRN Reason: Agitation Docusate Sodium (Colace) 100 mg PO BID PRN PRN Reason: Constipation Folic Acid (Folic Acid) 1 mg PO DAILY [facility] Last Admin: 04/07/17 08:41 Dose: 1 mg Hydralazine HCl (Apresoline) 20 mg IVPUSH Q4H PRN PRN Reason: Hypertension Promethazine HCl 12.5 mg/ (Sodium Chloride) 50.5 mls @ 100 mls/hr IV Q6H PRN PRN Reason: Nausea/Vomiting Fentanyl 2,500 mcg/ Sodium (Chloride) 250 mls @ 11.9 mls/hr IV TITRATE [facility]EDDY; 1 MCG/KG/HR PRN Reason: Protocol Propofol (Diprivan 100 Ml) 100 mls @ 3.57 mls/hr IV TITRATE [facility]ED[facility]; 5 MCG/KG/MIN PRN Reason: Protocol Last Titration: 04/07/17 10:28 Dose: 35 mcg/kg/min, 24.99 mls/hr Pantoprazole Sodium 80 mg/ (Sodium Chloride) 100 mls @ 8 mls/hr IV Q10H [facility] Last Admin: 04/07/17 08:33 Dose: 8 mls/hr Dextrose/Sodium Chloride (Dextrose 5%-Normal Saline) 1,000 mls @ 50 mls/hr IV ASDIRECTED [facility] Lorazepam (Ativan) 2 mg IVPUSH Q4H PRN PRN Reason: Seizures Last Admin: 04/06/17 18:46 Dose: 1 mg Lorazepam (Ativan) 0 mg IVPUSH Q4H PRN; Protocol PRN Reason: Withdrawal Symptoms Last Admin: 04/06/17 18:07 Dose: 1 mg Magnesium Sulfate (Pharmacy To Dose - Magnesium Replacement) 1 dose .XX ASDIRECTED [facility] Metoprolol Tartrate (Lopressor) 5 mg IVPUSH Q4H PRN PRN Reason: Tachycardia Multivitamins (Thera) 1 each PO DAILY [facility] Last Admin: 04/07/17 08:41 Dose: 1 each Ondansetron HCl (Zofran) 4 mg IV Q6H PRN PRN Reason: Nausea/Vomiting Last Admin: 04/06/17 13:58 Dose: 4 mg Polyethylene Glycol (Miralax) 17 gm PO DAILY PRN PRN Reason: Constipation Potassium Chloride (Pharmacy To Dose - Potassium Replacement) 1 dose .XX ASDIRECTED [facility] Senna/Docusate Sodium (Senna Plus) 1 tab PO BID PRN PRN Reason: Constipation Sodium Chloride (Saline Flush) 10 ml FLUSH ASDIRECTED PRN PRN Reason: Keep Vein Open Last Admin: 04/05/17 23:11 Dose: 10 ml Thiamine HCl (Vitamin B-1) 100 mg IVPUSH DAILY [facility] Last Admin: 04/07/17 08:40 Dose: 100 mg Topiramate (Topamax) 25 mg PO BID [facility] Last Admin: 04/07/17 08:41 Dose: 25 mg Discontinued Medications Atropine Sulfate (Atropine 0.1 Mg/Ml) Confirm Administered Dose 2 mg .ROUTE .STK -MED ONE Stop: 04/06/17 04:20 Last Admin: 04/06/17 04:45 Dose: Not Given Atropine Sulfate (Atropine 0.1 Mg/Ml) 1 mg IVPUSH ONETIME ONE Stop: 04/06/17 04:42 Last Admin: 04/06/17 04:41 Dose: 1 mg Bumetanide (Bumex) 1 mg IVPUSH ONETIME ONE Stop: 04/07/17 08:21 Last Admin: 04/07/17 08:40 Dose: 1 mg Chlordiazepoxide HCl (Librium) 100 mg PO ONETIME ONE Stop: 04/06/17 04:45 Last Admin: 04/06/17 06:12 Dose: 100 mg Diazepam (Valium) Confirm Administered Dose 10 mg .ROUTE .STK-MED ONE Stop: 04/06/17 10:41 Last Admin: 04/06/17 10:52 Dose: 10 mg Diazepam (Valium) 10 mg IVPUSH ONETIME ONE Stop: 04/06/17 10:41 Last Admin: 04/06/17 10:41 Dose: 10 mg Enoxaparin Sodium (Lovenox) 40 mg SUBCUT DAILY [facility] Last Admin: 04/06/17 07:53 Dose: 40 mg Famotidine (Pepcid) 20 mg PO Q12H [facility] Last Admin: 04/06/17 06:40 Dose: Not Given Famotidine (Pepcid) 20 mg IVPUSH ONETIME ONE Stop: 04/06/17 04:48 Last Admin: 04/06/17 06:12 Dose: 20 mg Famotidine (Pepcid) 20 mg IVPUSH BID [facility] Last Admin: 04/07/17 08:41 Dose: 20 mg Folic Acid (Folic Acid) 1 mg PO ONETIME ONE Stop: 04/06/17 04:41 Last Admin: 04/06/17 06:13 Dose: 1 mg Folic Acid (Folic Acid) 1 mg PO DAILY [facility] Sodium Chloride (Normal Saline) 1,000 mls @ 999 mls/hr IV ONETIME [facility] Last Admin: 04/05/17 23:09 Dose: 999 mls/hr Sodium Chloride (Normal Saline) 1,000 mls @ 999 mls/hr IV ONETIME [facility] Last Admin: 04/06/17 00:57 Dose: 999 mls/hr Sodium Chloride (Normal Saline) 1,000 mls @ 150 mls/hr IV ASDIRECTED [facility] Sodium Chloride (Normal Saline) 1,000 mls @ 250 mls/hr IV ASDIRECTED [facility] Last Admin: 04/06/17 12:32 Dose: 250 mls/hr Propofol (Diprivan 100 Ml) Confirm Administered Dose 100 mls @ as directed .ROUTE .STK-MED ONE Stop: 04/06/17 11:02 Last Admin: 04/06/17 12:44 Dose: Not Given Magnesium Sulfate 2 gm/ Premix 50 mls @ 25 mls/hr IV ONETIME ONE Stop: 04/06/17 15:38 Last Admin: 04/06/17 13:48 Dose: 25 mls/hr Dextrose/Sodium Chloride (Dextrose 5%-Normal Saline) 1,000 mls @ 250 mls/hr IV ASDIRECTED [facility] Last Admin: 04/07/17 04:22 Dose: 250 mls/hr Thiamine HCl 100 mg/ Sodium (Chloride) 101 mls @ 200 mls/hr IV DAILY ONE Stop: 04/06/17 18:03 Last Admin: 04/06/17 18:37 Dose: 200 mls/hr Lorazepam (Ativan) 1 mg IVPUSH ONETIME ONE Stop: 04/06/17 00:08 Last Admin: 04/06/17 00:15 Dose: 1 mg Lorazepam (Ativan) 1 mg IVPUSH Q4H PRN PRN Reason: Anxiety Last Admin: 04/06/17 04:00 Dose: 1 mg Magnesium Oxide (Magnesium Oxide) 400 mg PO ONETIME ONE Stop: 04/06/17 07:16 Last Admin: 04/06/17 07:30 Dose: Not Given Midazolam HCl (Versed 1 Mg/Ml) 5 mg IVPUSH ONETIME ONE Stop: 04/06/17 12:52 Last Admin: 04/06/17 11:13 Dose: 5 mg Midazolam HCl (Versed 1 Mg/Ml) 5 mg .ROUTE .STK-MED ONE Stop: 04/06/17 14:01 Multivitamins (Thera) 1 each PO ONETIME ONE Stop: 04/06/17 04:41 Last Admin: 04/06/17 06:13 Dose: 1 each Pneumococcal Polyvalent Vaccine (Pneumovax 23) 0.5 ml SUBCUT .ONCE ONE Stop: 04/06/17 06:05 Last Admin: 04/06/17 06:41 Dose: Not Given Quetiapine Fumarate (Seroquel) 50 mg PO ONETIME ONE Stop: 04/06/17 04:44 Last Admin: 04/06/17 06:13 Dose: 50 mg Rocuronium [place] (Zemuron) 100 mg IVPUSH ONETIME ONE Stop: 04/06/17 12:52 Last Admin: 04/06/17 11:14 Dose: 100 mg Rocuronium [place] (Zemuron) 100 mg .ROUTE .STK-MED ONE Stop: 04/06/17 14:01 Thiamine HCl (Vitamin B-1) 100 mg PO BEDTIME [facility] Thiamine HCl (Vitamin B-1) 200 mg IV ONETIME ONE Stop: 04/06/17 04:42 Last Admin: 04/06/17 06:12 Dose: 200 mg Consult PN Assessment/Plan Procedures: Procedures EMERGENCY DEPT VISIT (05/02/14) FIBRIN DEGRADATION QUANT (11/14/14) ROUTINE VENIPUNCTURE (11/14/14) Problem List Initiated/Reviewed/Updated: Yes Plan: surgical consult dictated KERLINE
[2017-04-07] MEDS: LORazepam 2 MG/ML MDV IVPUSH PRN ×2 (19:48→23:10)
[2017-04-07] MEDS: chlordiazePOXIDE 25 MG Cap PO PRN (19:49)
[2017-04-08] MEDS: LORazepam 2 MG/ML MDV IVPUSH PRN (01:10)
--- NOTE | 2017-04-08 06:14 | PCM.PN ---
- General Info Date of Service: 04/08/17 Admission Dx/Problem (Free Text): AMS and Attempted Suicide by Ingestion of Toxic Substance Subjective Update: Follow up Functional Status: Reports: pain controlled. Denies: new symptoms - Review of Systems General: Denies: Fever, Chills HEENT: Reports: no symptoms Pulmonary: Denies: shortness of breath Gastrointestinal: Denies: Abdominal pain, Nausea, Vomiting Genitourinary: Reports: no symptoms Musculoskeletal: Reports: no symptoms Skin: Reports: no symptoms Neurological: Reports: No Symptoms Psychiatric: Reports: no symptoms Systems Review Comment:: ROS is very limited. He is still sedated and intubated on mechanical ventilator. He was severely agitated last night and propofol drip had to be titrated up. He is much comfortable now. Urine output looks green. - Patient Data Vitals - most recent: Last Vital Signs Temp 37.9 C 04/07/17 20:00 Pulse 91 04/06/17 18:00 Resp 14 04/08/17 06:05 BP 117/82 04/08/17 03:59 Pulse Ox 95 04/08/17 06:05 Weight - most recent: 116.2 kg I&O - last 24 hours: Intake & Output 04/07/17 04/07/17 04/08/17 14:59 22:59 06:59 Intake Total 1455 1080 Output Total 3210 335 1150 Balance -3210 1120 -70 Lab Results last 24 hrs: Laboratory Results - last 24 hr 04/07/17 04/07/17 04/07/17 Range/Units 06:40 07:07 07:07 WBC 15.64 H (4.23-9.07) K/mm3 RBC 4.41 L (4.63-6.08) M/mm3 Hgb 14.0 (13.7-17.5) gm/L Hct 42.0 (40.1-51.0) % MCV 95.2 H (79.0-92.2) fl MCH 31.7 (25.7-32.2) pg MCHC 33.3 (32.2-35.5) g/dl RDW Std Deviation 43.4 (35.1-43.9) fL Plt Count 245 (163-337) K/mm3 MPV 10.7 (9.4-12.3) fl Neut % (Auto) 66.2 (34.0-67.9) % Lymph % (Auto) 21.8 (21.8-53.1) % [place] % (Auto) 11.2 (5.3-12.2) % Eos % (Auto) 0.5 L (0.8-7.0) Baso % (Auto) 0.1 (0.1-1.2) % Neut # (Auto) 10.35 H (1.78-5.38) K/mm3 Lymph # (Auto) 3.41 (1.32-3.57) K/mm3 [place] # (Auto) 1.75 H (0.30-0.82) K/mm3 Eos # (Auto) 0.08 (0.04-0.54) K/mm3 Baso # (Auto) 0.02 (0.01-0.08) K/mm3 Manual Slide Review Normal smear Puncture Site Rt radial ABG pH 7.34 L (7.35-7.45) ABG pCO2 38.7 (35.0-45.0) mmHg ABG pO2 74.0 L (80.0-100.0) mmHg ABG HCO3 20.5 L (22.0-26.0) meq/L ABG O2 Saturation 96.4 (96.0-97.0) % ABG Base Excess -4.3 L (-2-2.0) A-a Gradient 70 mmHg O2 Delivery Device Ventilator FiO2 30.00 (21.00-100.00) % Tidal Volume 650.0 cc PEEP 5.0 cmH20 Sodium 143 (136-145) mEq/L Potassium 4.5 (3.5-5.1) mEq/L Chloride 113 H (98-107) mEq/L Carbon Dioxide 22 (21-32) mEq/L Anion Gap 12.5 (5-15) BUN 4 L (7-18) mg/dL Creatinine 0.9 (0.7-1.3) mg/dL Est Cr Clr Drug Dosing 129.33 mL/min Estimated GFR (MDRD) > 60 (>60) mL/min BUN/Creatinine Ratio 4.4 L (14-18) Glucose 109 H (74-106) mg/dL Calcium 8.0 L (8.5-10.1) mg/dL Magnesium 2.1 (1.8-2.4) mg/dl C-Reactive Protein 1.5 H* (<1.0) mg/dL B-Natriuretic Peptide (0-100) pg/mL 04/08/17 04/08/17 04/08/17 Range/Units 05:21 05:21 05:21 WBC 20.39 H (4.23-9.07) K/mm3 RBC 4.35 L (4.63-6.08) M/mm3 Hgb 14.0 (13.7-17.5) gm/L Hct 41.0 (40.1-51.0) % MCV 94.3 H (79.0-92.2) fl MCH 32.2 (25.7-32.2) pg MCHC 34.1 (32.2-35.5) g/dl RDW Std Deviation 43.3 (35.1-43.9) fL Plt Count 146 L (163-337) K/mm3 MPV 10.8 (9.4-12.3) fl Neut % (Auto) 73.2 H (34.0-67.9) % Lymph % (Auto) 17.4 L (21.8-53.1) % [place] % (Auto) 5.9 (5.3-12.2) % Eos % (Auto) 3.3 (0.8-7.0) Baso % (Auto) 0.2 (0.1-1.2) % Neut # (Auto) 14.94 H (1.78-5.38) K/mm3 Lymph # (Auto) 3.54 (1.32-3.57) K/mm3 [place] # (Auto) 1.20 H (0.30-0.82) K/mm3 Eos # (Auto) 0.67 H (0.04-0.54) K/mm3 Baso # (Auto) 0.04 (0.01-0.08) K/mm3 Manual Slide Review Normal smear Puncture Site ABG pH (7.35-7.45) ABG pCO2 (35.0-45.0) mmHg ABG pO2 (80.0-100.0) mmHg ABG HCO3 (22.0-26.0) meq/L ABG O2 Saturation (96.0-97.0) % ABG Base Excess (-2-2.0) A-a Gradient mmHg O2 Delivery Device FiO2 (21.00-100.00) % Tidal Volume cc PEEP cmH20 Sodium 144 (136-145) mEq/L Potassium 3.4 L (3.5-5.1) mEq/L Chloride 110 H (98-107) mEq/L Carbon Dioxide 26 (21-32) mEq/L Anion Gap 11.4 (5-15) BUN 7 (7-18) mg/dL Creatinine 1.3 (0.7-1.3) mg/dL Est Cr Clr Drug Dosing 89.54 mL/min Estimated GFR (MDRD) > 60 (>60) mL/min BUN/Creatinine Ratio 5.4 L (14-18) Glucose 110 H (74-106) mg/dL Calcium 8.1 L (8.5-10.1) mg/dL Magnesium 1.9 (1.8-2.4) mg/dl C-Reactive Protein 12.6 H* (<1.0) mg/dL B-Natriuretic Peptide < 15 (0-100) pg/mL Med Orders - Current: Current Medications Acetaminophen (Tylenol) 650 mg PO Q4H PRN PRN Reason: Pain (Mild 1-3)/fever Hydrocodone Bitart/Acetaminophen ([place] 325-5 Mg) 1 tab PO Q4H PRN PRN Reason: Pain (moderate 4-6) Last Admin: 04/07/17 19:49 Dose: 1 tab Albuterol/Ipratropium (Duoneb 3.0-0.5 Mg/3 Ml) 3 ml NEB Q4H PRN PRN Reason: Shortness Of Breath/wheezing Bisacodyl (Dulcolax) 5 mg PO DAILY PRN PRN Reason: Constipation Chlordiazepoxide HCl (Librium) 25 mg PO QID PRN PRN Reason: Withdrawal Symptoms Last Admin: 04/07/17 19:49 Dose: 25 mg Clonidine HCl (Catapres) 0.1 mg PO Q4H PRN PRN Reason: Agitation Docusate Sodium (Colace) 100 mg PO BID PRN PRN Reason: Constipation Folic Acid (Folic Acid) 1 mg PO DAILY TEDDY Last Admin: 04/07/17 08:41 Dose: 1 mg Hydralazine HCl (Apresoline) 20 mg IVPUSH Q4H PRN PRN Reason: Hypertension Promethazine HCl 12.5 mg/ (Sodium Chloride) 50.5 mls @ 100 mls/hr IV Q6H PRN PRN Reason: Nausea/Vomiting Fentanyl 2,500 mcg/ Sodium (Chloride) 250 mls @ 11.9 mls/hr IV TITRATE TEDDY; 1 MCG/KG/HR PRN Reason: Protocol Propofol (Diprivan 100 Ml) 100 mls @ 3.57 mls/hr IV TITRATE TEDDY; 5 MCG/KG/MIN PRN Reason: Protocol Last Admin: 04/08/17 04:19 Dose: 55 mcg/kg/min, 39.27 mls/hr Dextrose/Sodium Chloride (Dextrose 5%-Normal Saline) 1,000 mls @ 50 mls/hr IV ASDIRECTED TEDDY Last Admin: 04/07/17 17:15 Dose: 50 mls/hr Pantoprazole Sodium 80 mg/ (Sodium Chloride) 100 mls @ 8 mls/hr IV ASDIRECTED [facility] Lorazepam (Ativan) 2 mg IVPUSH Q4H PRN PRN Reason: Seizures Last Admin: 04/06/17 18:46 Dose: 1 mg Lorazepam (Ativan) 0 mg IVPUSH Q4H PRN; Protocol PRN Reason: Withdrawal Symptoms Last Admin: 04/08/17 01:10 Dose: 2 mg Magnesium Sulfate (Pharmacy To Dose - Magnesium Replacement) 1 dose .XX ASDIRECTED [facility] Metoprolol Tartrate (Lopressor) 5 mg IVPUSH Q4H PRN PRN Reason: Tachycardia Multivitamins (Thera) 1 each PO DAILY [facility] Last Admin: 04/07/17 08:41 Dose: 1 each Ondansetron HCl (Zofran) 4 mg IV Q6H PRN PRN Reason: Nausea/Vomiting Last Admin: 04/06/17 13:58 Dose: 4 mg Polyethylene Glycol (Miralax) 17 gm PO DAILY PRN PRN Reason: Constipation Potassium Chloride (Pharmacy To Dose - Potassium Replacement) 1 dose .XX ASDIRECTED [facility] Senna/Docusate Sodium (Senna Plus) 1 tab PO BID PRN PRN Reason: Constipation Sodium Chloride (Saline Flush) 10 ml FLUSH ASDIRECTED PRN PRN Reason: Keep Vein Open Last Admin: 04/05/17 23:11 Dose: 10 ml Thiamine HCl (Vitamin B-1) 100 mg IVPUSH DAILY [facility] Last Admin: 04/07/17 08:40 Dose: 100 mg Topiramate (Topamax) 25 mg PO BID [facility] Last Admin: 04/07/17 20:43 Dose: Not Given Discontinued Medications Atropine Sulfate (Atropine 0.1 Mg/Ml) Confirm Administered Dose 2 mg .ROUTE .STK -MED ONE Stop: 04/06/17 04:20 Last Admin: 04/06/17 04:45 Dose: Not Given Atropine Sulfate (Atropine 0.1 Mg/Ml) 1 mg IVPUSH ONETIME ONE Stop: 04/06/17 04:42 Last Admin: 04/06/17 04:41 Dose: 1 mg Bumetanide (Bumex) 1 mg IVPUSH ONETIME ONE Stop: 04/07/17 08:21 Last Admin: 04/07/17 08:40 Dose: 1 mg Bumetanide (Bumex) 1 mg IVPUSH ONETIME ONE Stop: 04/07/17 21:54 Last Admin: 04/07/17 22:20 Dose: 1 mg Chlordiazepoxide HCl (Librium) 100 mg PO ONETIME ONE Stop: 04/06/17 04:45 Last Admin: 04/06/17 06:12 Dose: 100 mg Diazepam (Valium) Confirm Administered Dose 10 mg .ROUTE .STK-MED ONE Stop: 04/06/17 10:41 Last Admin: 04/06/17 10:52 Dose: 10 mg Diazepam (Valium) 10 mg IVPUSH ONETIME ONE Stop: 04/06/17 10:41 Last Admin: 04/06/17 10:41 Dose: 10 mg Enoxaparin Sodium (Lovenox) 40 mg SUBCUT DAILY [facility] Last Admin: 04/06/17 07:53 Dose: 40 mg Famotidine (Pepcid) 20 mg PO Q12H [facility] Last Admin: 04/06/17 06:40 Dose: Not Given Famotidine (Pepcid) 20 mg IVPUSH ONETIME ONE Stop: 04/06/17 04:48 Last Admin: 04/06/17 06:12 Dose: 20 mg Famotidine (Pepcid) 20 mg IVPUSH BID [facility] Last Admin: 04/07/17 08:41 Dose: 20 mg Folic Acid (Folic Acid) 1 mg PO ONETIME ONE Stop: 04/06/17 04:41 Last Admin: 04/06/17 06:13 Dose: 1 mg Folic Acid (Folic Acid) 1 mg PO DAILY TEDDY Sodium Chloride (Normal Saline) 1,000 mls @ 999 mls/hr IV ONETIME TEDDY Last Admin: 04/05/17 23:09 Dose: 999 mls/hr Sodium Chloride (Normal Saline) 1,000 mls @ 999 mls/hr IV ONETIME [facility] Last Admin: 04/06/17 00:57 Dose: 999 mls/hr Sodium Chloride (Normal Saline) 1,000 mls @ 150 mls/hr IV ASDIRECTED TEDDY Sodium Chloride (Normal Saline) 1,000 mls @ 250 mls/hr IV ASDIRECTED [facility] Last Admin: 04/06/17 12:32 Dose: 250 mls/hr Propofol (Diprivan 100 Ml) Confirm Administered Dose 100 mls @ as directed .ROUTE .STK-MED ONE Stop: 04/06/17 11:02 Last Admin: 04/06/17 12:44 Dose: Not Given Magnesium Sulfate 2 gm/ Premix 50 mls @ 25 mls/hr IV ONETIME ONE Stop: 04/06/17 15:38 Last Admin: 04/06/17 13:48 Dose: 25 mls/hr Dextrose/Sodium Chloride (Dextrose 5%-Normal Saline) 1,000 mls @ 250 mls/hr IV ASDIRECTED [facility] Last Admin: 04/07/17 04:22 Dose: 250 mls/hr Thiamine HCl 100 mg/ Sodium (Chloride) 101 mls @ 200 mls/hr IV DAILY ONE Stop: 04/06/17 18:03 Last Admin: 04/06/17 18:37 Dose: 200 mls/hr Pantoprazole Sodium 80 mg/ (Sodium Chloride) 100 mls @ 8 mls/hr IV Q10H TEDDY Last Admin: 04/07/17 19:52 Dose: 8 mls/hr Lorazepam (Ativan) 1 mg IVPUSH ONETIME ONE Stop: 04/06/17 00:08 Last Admin: 04/06/17 00:15 Dose: 1 mg Lorazepam (Ativan) 1 mg IVPUSH Q4H PRN PRN Reason: Anxiety Last Admin: 04/06/17 04:00 Dose: 1 mg Magnesium Oxide (Magnesium Oxide) 400 mg PO ONETIME ONE Stop: 04/06/17 07:16 Last Admin: 04/06/17 07:30 Dose: Not Given Midazolam HCl (Versed 1 Mg/Ml) 5 mg IVPUSH ONETIME ONE Stop: 04/06/17 12:52 Last Admin: 04/06/17 11:13 Dose: 5 mg Midazolam HCl (Versed 1 Mg/Ml) 5 mg .ROUTE .STK-MED ONE Stop: 04/06/17 14:01 Multivitamins (Thera) 1 each PO ONETIME ONE Stop: 04/06/17 04:41 Last Admin: 04/06/17 06:13 Dose: 1 each Pneumococcal Polyvalent Vaccine (Pneumovax 23) 0.5 ml SUBCUT .ONCE ONE Stop: 04/06/17 06:05 Last Admin: 04/06/17 06:41 Dose: Not Given Quetiapine Fumarate (Seroquel) 50 mg PO ONETIME ONE Stop: 04/06/17 04:44 Last Admin: 04/06/17 06:13 Dose: 50 mg Rocuronium [place] (Zemuron) 100 mg IVPUSH ONETIME ONE Stop: 04/06/17 12:52 Last Admin: 04/06/17 11:14 Dose: 100 mg Rocuronium [place] (Zemuron) 100 mg .ROUTE .STK-MED ONE Stop: 04/06/17 14:01 Thiamine HCl (Vitamin B-1) 100 mg PO BEDTIME TEDDY Thiamine HCl (Vitamin B-1) 200 mg IV ONETIME ONE Stop: 04/06/17 04:42 Last Admin: 04/06/17 06:12 Dose: 200 mg - Exam General: sedated, other (He respond to sternal rub: open his yes and move his extremities) HEENT: Pupils equal, Pupils reactive Neck: trachea midline, no JVD Lungs: Normal respiratory effort, Decreased breath sounds Cardiovascular: Regular Rate, Regular Rhythm Abdomen: bowel sounds present, soft, no tenderness, no distension (Male) Exam: Other (indwelling felix catheter (green output)) Extremities: no edema, normal pulses, no tenderness/swelling, no clubbing, no cyanosis, no calf tenderness Peripheral Pulses: 3+: Posterior Tibial (L), Posterior Tibial (R), Dorsalis Pedis (L), Dorsalis Pedis (R) Skin: warm, dry, intact Physical Findings Comments:: Sedated and Intubated on Mechanical Ventilator - Problem List Review Problem List Initiated/Reviewed/Updated: Yes - My Orders Last 24 Hours: My Active Orders 04/07/17 06:41 Desired Level of Sedation (RASS) [AST] Click To Edit 04/07/17 08:00 RASS Sedation Scale [RC] Q4HR 04/07/17 08:30 Dextrose 5%-0.9% NaCl [Dextrose 5%-Normal Saline] 1,000 ml IV ASDIRECTED 04/07/17 09:00 Folic Acid 1 mg PO DAILY Multivitamins,Therapeutic [Thera] 1 each PO DAILY Thiamine [Vitamin B-1] 100 mg IVPUSH DAILY 04/07/17 09:51 Antiembolic Devices [RC] 10,22 SCD [Sequential Compression Device] [OM.PC] Routine 04/07/17 10:49 Communication Order [RC] ASDIRECTED 04/07/17 19:40 Restraint Continue N-V/N-SD [OM.PC] Routine Restraint Eval Need to Continue - 24 Hrs [OM.PC] Daily Restraint Initiate Non-VIOL/Non-SD [OM.PC] Routine Restraint Monitoring Non-VIOL/Non-SD [OM.PC] Daily 04/07/17 20:45 Pantoprazole [ProTONIX IV] 80 mg Sodium Chloride 0.9% [Normal Saline] 100 ml IV ASDIRECTED 04/08/17 19:40 Restraint Eval Need to Continue - 24 Hrs [OM.PC] Daily Restraint Monitoring Non-VIOL/Non-SD [OM.PC] Daily 04/09/17 05:11 BASIC METABOLIC PANEL,BMP [CHEM] AM C-REACTIVE PROTEIN [CHEM] AM CBC WITH AUTO DIFF [HEME] AM MAGNESIUM [CHEM] AM 04/10/17 05:11 BASIC METABOLIC PANEL,BMP [CHEM] AM C-REACTIVE PROTEIN [CHEM] AM CBC WITH AUTO DIFF [HEME] AM MAGNESIUM [CHEM] AM - Plan Plan:: Assessment/Plan: Acute: Sedated and Mechanically Vented - 2/2 Acute Respiratory Failure/ Severe Agitation and DT - VT setting same as yesterday - ABG this am pH 7.40, pCO2 36.5 and pO2 60 at 35% FiO2, will increase FiO2 to 45% - Continue Moderate STEPHANIE - Will start fentanyl drip and titrate down his diprivan drip - Routine Vent care Aspiration Syndrome Vs PNA - Elevated WBC and CRP level - CXR shows increasing atelectasis - Will start IV Abx: Levaquin and Zosyn for pharmacy to renally dose - Serial CXR Upper GI Bleed (Uncertain how much damage caused by the pesticide he took) - Protonix Drip - He is off anticoagulation - Dr. Ritter following - Routine saline flush and suctioning to prevent blood clot formation in OG tube Suicide Attempt via Ingestion of Toxic Substance - 2-4 ounces of insecticide (unclear hoe much he actually took) - Poison control consulted - Supportive Care Probable Organo-Phosphate Poisoning - Supportive Care - He received bedside bath per overnight nurse to remove further organic substance on him - Atropin IVP PNR for Symptomatic control - Pharmacy don't carry Pralidoxime plus unable to get ahold of on-call local pharmacy ETOH with DTs - ISIDORO level 0.20 - He usually drinks 3-6 beers QOD but drank 2 shots of fire ball per patient - CIWA protocol; CIWA score is low at this time - Seroquel/Librium/Clonidine/Topamax - Hydralzine and IVP BB for HR/BP control - Ativan for Abortive Seizure and Withdrawal Symptoms Poly-Substance Abuse - UDS: pos Amphetamine/Methamphetamine and THC - Admits to taking Clonazepam 5mg x1 plus ETOH last evening - SA consult Tobacco Dependence - Nicotine patch - Counseled on Smoking Cessation Hx/o MDD - Unknown if he is on any psychotropic medications at this time - No family members present at bedside - Tele-psych consult Seizures - Has had 2 episode already per nurse - Likely from combination above - Seizure precautions - Topamax for prevention - Ativan for Abortive Medication Plan: He remains in serious-critical condition Continue: CIWA Protocol, MVI, Folic, Acid and Thiamine Ativan for Abortive Seizure and Withdrawal Symptoms PRN meds for Withdrawal Symptoms Aspiration/Seizure Precautions LA and CPK to r/o PIS (Propofol Infusion Syndrome) SW/CM d/c planning He is not ready to be extubated DVT ppx: SCDs due to upper GI Bleed, GI ppx: Protonix drip SA/Psych consult once extubated Code Status: 1 LOS anticipate > 96 hrs due to complexity of his presenting illness
[2017-04-08] MEDS: Folic Acid 1 MG Tab PO SCH (08:57)
[2017-04-08] MEDS: Levofloxacin/Dextrose 5%-Water 750 MG in Premix Bag 1 BAG IV SCH (08:57)
[2017-04-08] MEDS: Topiramate 25 MG Tab PO SCH ×2 (08:57→21:15)
[2017-04-08] MEDS: Multivitamins,Therapeutic Tab PO SCH (08:57)
[2017-04-08] MEDS: Thiamine 200 MG/2 ML MDV IVPUSH SCH (08:57)
[2017-04-08] MEDS: Saccharomyces Boulardii (Probiotic) 250 MG Cap PO SCH ×3 (08:57→21:15)
[2017-04-08] MEDS: Pantoprazole 80 MG in Sodium Chloride 0.9% 100 ML IV SCH ×2 (09:13→21:04)
--- NOTE | 2017-04-08 09:22 | CR ---
Chest: Frontal view of the chest was obtained. Comparison: Previous chest x-ray of 04/07/17. Stable position of endotracheal tube is seen lying at the upper level of the clavicles. Nasogastric tube also appears stable with tip lying within stomach. Mild increased atelectasis is believed to be present within the left base or possibly change from aspiration. Persisting atelectasis within the right lung base or possibly due to additional aspiration. Lungs otherwise are clear. Bony structures are grossly intact. Impression: 1. Increasing atelectasis within the left lung base as well as stable atelectasis within the right lung base. Difficult to exclude change from aspiration if patient has correlating symptoms. 2. Stable position of endotracheal tube and nasogastric tube. Diagnostic code #3
[2017-04-08] MEDS ORDERED: Piperacillin/Tazobactam 4.5 GM in Sodium Chloride 0.9% 100 ML IV ONE (10:00)
[2017-04-08] MEDS: Dextrose 5%-0.9% NaCl 1,000 ML IV SCH ×2 (12:27→21:17)
[2017-04-08] MEDS ORDERED: Sodium Chloride 0.9% 500 ML IV ONE (17:46)
[2017-04-08] MEDS: Piperacillin/Tazobactam 4.5 GM in Sodium Chloride 0.9% 100 ML IV SCH (18:57)
[2017-04-08] MEDS ORDERED: Midazolam 50 MG in Sodium Chloride 0.9% 40 ML IV SCH (20:15)
[2017-04-08] MEDS ORDERED: Midazolam 1 MG/ML 2 ML SDV ONE ×2 (20:18→20:28)
[2017-04-08] MEDS ORDERED: Sodium Chloride 0.9% 50 ML ONE (20:28)
[2017-04-08] MEDS ORDERED: Midazolam 1 MG/ML 2 ML SDV IV PRN (21:01)
[2017-04-08] MEDS ORDERED: MIDAZOLAM IV SCH (21:13)
[2017-04-08] MEDS ORDERED: SODIUM CHLORIDE 0.9% IV SCH (21:13)
[2017-04-08] MEDS ORDERED: Bumetanide 1 MG/4 ML MDV IVPUSH ONE (22:55)
[2017-04-08] MEDS: Potassium Chloride 10 MEQ in Premix Bag 1 BAG IV SCH (23:08)
[2017-04-09] MEDS: Potassium Chloride 10 MEQ in Premix Bag 1 BAG IV SCH ×3 (00:20→01:27)
[2017-04-09] MEDS: Piperacillin/Tazobactam 4.5 GM in Sodium Chloride 0.9% 100 ML IV SCH ×3 (01:25→18:04)
--- NOTE | 2017-04-09 06:23 | PCM.PN ---
- General Info Date of Service: 04/09/17 Admission Dx/Problem (Free Text): AMS and Attempted Suicide by Ingestion of Toxic Substance Subjective Update: Follow up Functional Status: Reports: pain controlled. Denies: new symptoms - Review of Systems General: Denies: Fever, Chills HEENT: Reports: no symptoms Gastrointestinal: Denies: Abdominal pain, Nausea, Vomiting Genitourinary: Reports: no symptoms Systems Review Comment:: Sedated and Mechanically Intubated - Patient Data Vitals - most recent: Last Vital Signs Temp 37.4 C 04/09/17 04:00 Pulse 91 04/06/17 18:00 Resp 12 04/09/17 06:10 BP 105/74 04/09/17 04:00 Pulse Ox 95 04/09/17 06:10 Weight - most recent: 116.936 kg I&O - last 24 hours: Intake & Output 04/08/17 04/08/17 04/09/17 14:59 22:59 06:59 Intake Total 2046 1786 Output Total 527 945 7638 Balance -465 1760 321 Lab Results last 24 hrs: Laboratory Results - last 24 hr 04/08/17 04/08/17 04/08/17 Range/Units 08:25 08:30 08:42 Puncture Site Rt radial ABG pH 7.40 (7.35-7.45) ABG pCO2 36.4 (35.0-45.0) mmHg ABG pO2 60.0 L (80.0-100.0) mmHg ABG HCO3 22.0 (22.0-26.0) meq/L ABG O2 Saturation 93.4 L (96.0-97.0) % ABG Base Excess -1.8 (-2-2.0) A-a Gradient 119 mmHg O2 Delivery Device Ventilator FiO2 35.00 (21.00-100.00) % Tidal Volume 650.0 cc PEEP 5.0 cmH20 Lactic Acid (0.4-2.0) mmol/L Creatine Kinase 289 (39-308) U/L Urine Color Green H (Yellow) Urine Appearance Clear (Clear) Urine pH 7.0 (5.0-8.0) Ur Specific [place] 1.020 (1.005-1.030) Urine Protein 1+ H (Negative) Urine Glucose (UA) Negative (Negative) Urine Ketones Negative (Negative) Urine Occult Blood Negative (Negative) Urine Nitrite Negative (Negative) Urine Bilirubin 2+ H (Negative) Urine Urobilinogen >=8.0 H (0.2-1.0) Ur Leukocyte Esterase Negative (Negative) Urine RBC 0-5 (0-5) /hpf Urine WBC 0-5 (0-5) /hpf Ur Epithelial Cells 0-5 (0-5) /hpf Urine Bacteria Few (FEW) /hpf Urine Mucus Not seen (FEW) /hpf 04/08/17 Range/Units 08:56 Puncture Site ABG pH (7.35-7.45) ABG pCO2 (35.0-45.0) mmHg ABG pO2 (80.0-100.0) mmHg ABG HCO3 (22.0-26.0) meq/L ABG O2 Saturation (96.0-97.0) % ABG Base Excess (-2-2.0) A-a Gradient mmHg O2 Delivery Device FiO2 (21.00-100.00) % Tidal Volume cc PEEP cmH20 Lactic Acid 0.8 (0.4-2.0) mmol/L Creatine Kinase (39-308) U/L Urine Color (Yellow) Urine Appearance (Clear) Urine pH (5.0-8.0) Ur Specific [place] (1.005-1.030) Urine Protein (Negative) Urine Glucose (UA) (Negative) Urine Ketones (Negative) Urine Occult Blood (Negative) Urine Nitrite (Negative) Urine Bilirubin (Negative) Urine Urobilinogen (0.2-1.0) Ur Leukocyte Esterase (Negative) Urine RBC (0-5) /hpf Urine WBC (0-5) /hpf Ur Epithelial Cells (0-5) /hpf Urine Bacteria (FEW) /hpf Urine Mucus (FEW) /hpf Med Orders - Current: Current Medications Acetaminophen (Tylenol) 650 mg PO Q4H PRN PRN Reason: Pain (Mild 1-3)/fever Hydrocodone Bitart/Acetaminophen ([place] 325-5 Mg) 1 tab PO Q4H PRN PRN Reason: Pain (moderate 4-6) Last Admin: 04/07/17 19:49 Dose: 1 tab Albuterol/Ipratropium (Duoneb 3.0-0.5 Mg/3 Ml) 3 ml NEB Q4H PRN PRN Reason: Shortness Of Breath/wheezing Bisacodyl (Dulcolax) 5 mg PO DAILY PRN PRN Reason: Constipation Chlordiazepoxide HCl (Librium) 25 mg PO QID PRN PRN Reason: Withdrawal Symptoms Last Admin: 04/07/17 19:49 Dose: 25 mg Clonidine HCl (Catapres) 0.1 mg PO Q4H PRN PRN Reason: Agitation Docusate Sodium (Colace) 100 mg PO BID PRN PRN Reason: Constipation Folic Acid (Folic Acid) 1 mg PO DAILY COUNT INCLUDES THE [facility] Last Admin: 04/08/17 08:57 Dose: 1 mg Hydralazine HCl (Apresoline) 20 mg IVPUSH Q4H PRN PRN Reason: Hypertension Promethazine HCl 12.5 mg/ (Sodium Chloride) 50.5 mls @ 100 mls/hr IV Q6H PRN PRN Reason: Nausea/Vomiting Fentanyl 2,500 mcg/ Sodium (Chloride) 250 mls @ 11.9 mls/hr IV TITRATE TEDDY; 1 MCG/KG/HR PRN Reason: Protocol Last Titration: 04/08/17 20:10 Dose: 0.08 mcg/kg/hr, 1 mls/hr Propofol (Diprivan 100 Ml) 100 mls @ 3.57 mls/hr IV TITRATE TEDDY; 5 MCG/KG/MIN PRN Reason: Protocol Last Admin: 04/09/17 05:08 Dose: 40 mcg/kg/min, 28.56 mls/hr Pantoprazole Sodium 80 mg/ (Sodium Chloride) 100 mls @ 8 mls/hr IV ASDIRECTED COUNT INCLUDES THE [facility] Last Admin: 04/08/17 21:04 Dose: 8 mls/hr Levofloxacin/Dextrose 750 mg/ (Premix) 150 mls @ 100 mls/hr IV Q24H COUNT INCLUDES THE [facility] Last Admin: 04/08/17 08:57 Dose: 100 mls/hr Piperacillin Sod/Tazobactam (Sod 4.5 gm/ Sodium Chloride) 100 mls @ 25 mls/hr IV Q8H COUNT INCLUDES THE [facility] Last Admin: 04/09/17 01:25 Dose: 25 mls/hr Dextrose/Sodium Chloride (Dextrose 5%-Normal Saline) 1,000 mls @ 125 mls/hr IV ASDIRECTED COUNT INCLUDES THE [facility] Last Admin: 04/08/17 21:17 Dose: 125 mls/hr Midazolam HCl 50 mg/ Sodium (Chloride) 50 mls @ 1 mls/hr IV TITRATE TEDDY; 1 MG/ HR PRN Reason: Protocol Last Titration: 04/09/17 05:09 Dose: 3 mg/hr, 3 mls/hr Lorazepam (Ativan) 2 mg IVPUSH Q4H PRN PRN Reason: Seizures Last Admin: 04/06/17 18:46 Dose: 1 mg Lorazepam (Ativan) 0 mg IVPUSH Q4H PRN; Protocol PRN Reason: Withdrawal Symptoms Last Admin: 04/08/17 01:10 Dose: 2 mg Magnesium Sulfate (Pharmacy To Dose - Magnesium Replacement) 1 dose .XX ASDIRECTED COUNT INCLUDES THE [facility] Metoprolol Tartrate (Lopressor) 5 mg IVPUSH Q4H PRN PRN Reason: Tachycardia Multivitamins (Thera) 1 each PO DAILY COUNT INCLUDES THE [facility] Last Admin: 04/08/17 08:57 Dose: 1 each Ondansetron HCl (Zofran) 4 mg IV Q6H PRN PRN Reason: Nausea/Vomiting Last Admin: 04/06/17 13:58 Dose: 4 mg Polyethylene Glycol (Miralax) 17 gm PO DAILY PRN PRN Reason: Constipation Potassium Chloride (Pharmacy To Dose - Potassium Replacement) 1 dose .XX ASDIRECTED COUNT INCLUDES THE [facility] Saccharomyces Boulardii (Florastor) 250 mg PO TID COUNT INCLUDES THE [facility] Last Admin: 04/08/17 21:15 Dose: Not Given Senna/Docusate Sodium (Senna Plus) 1 tab PO BID PRN PRN Reason: Constipation Sodium Chloride (Saline Flush) 10 ml FLUSH ASDIRECTED PRN PRN Reason: Keep Vein Open Last Admin: 04/05/17 23:11 Dose: 10 ml Thiamine HCl (Vitamin B-1) 100 mg IVPUSH DAILY COUNT INCLUDES THE [facility] Last Admin: 04/08/17 08:57 Dose: 100 mg Topiramate (Topamax) 25 mg PO BID COUNT INCLUDES THE [facility] Last Admin: 04/08/17 21:15 Dose: Not Given Discontinued Medications Atropine Sulfate (Atropine 0.1 Mg/Ml) Confirm Administered Dose 2 mg .ROUTE .STK -MED ONE Stop: 04/06/17 04:20 Last Admin: 04/06/17 04:45 Dose: Not Given Atropine Sulfate (Atropine 0.1 Mg/Ml) 1 mg IVPUSH ONETIME ONE Stop: 04/06/17 04:42 Last Admin: 04/06/17 04:41 Dose: 1 mg Bumetanide (Bumex) 1 mg IVPUSH ONETIME ONE Stop: 04/07/17 08:21 Last Admin: 04/07/17 08:40 Dose: 1 mg Bumetanide (Bumex) 1 mg IVPUSH ONETIME ONE Stop: 04/07/17 21:54 Last Admin: 04/07/17 22:20 Dose: 1 mg Bumetanide (Bumex) 1 mg IVPUSH ONETIME ONE Stop: 04/08/17 22:56 Last Admin: 04/08/17 23:08 Dose: 1 mg Chlordiazepoxide HCl (Librium) 100 mg PO ONETIME ONE Stop: 04/06/17 04:45 Last Admin: 04/06/17 06:12 Dose: 100 mg Diazepam (Valium) Confirm Administered Dose 10 mg .ROUTE .STK-MED ONE Stop: 04/06/17 10:41 Last Admin: 04/06/17 10:52 Dose: 10 mg Diazepam (Valium) 10 mg IVPUSH ONETIME ONE Stop: 04/06/17 10:41 Last Admin: 04/06/17 10:41 Dose: 10 mg Enoxaparin Sodium (Lovenox) 40 mg SUBCUT DAILY COUNT INCLUDES THE [facility] Last Admin: 04/06/17 07:53 Dose: 40 mg Famotidine (Pepcid) 20 mg PO Q12H COUNT INCLUDES THE [facility] Last Admin: 04/06/17 06:40 Dose: Not Given Famotidine (Pepcid) 20 mg IVPUSH ONETIME ONE Stop: 04/06/17 04:48 Last Admin: 04/06/17 06:12 Dose: 20 mg Famotidine (Pepcid) 20 mg IVPUSH BID COUNT INCLUDES THE [facility] Last Admin: 04/07/17 08:41 Dose: 20 mg Folic Acid (Folic Acid) 1 mg PO ONETIME ONE Stop: 04/06/17 04:41 Last Admin: 04/06/17 06:13 Dose: 1 mg Folic Acid (Folic Acid) 1 mg PO DAILY COUNT INCLUDES THE [facility] Sodium Chloride (Normal Saline) 1,000 mls @ 999 mls/hr IV ONETIME COUNT INCLUDES THE [facility] Last Admin: 04/05/17 23:09 Dose: 999 mls/hr Sodium Chloride (Normal Saline) 1,000 mls @ 999 mls/hr IV ONETIME COUNT INCLUDES THE [facility] Last Admin: 04/06/17 00:57 Dose: 999 mls/hr Sodium Chloride (Normal Saline) 1,000 mls @ 150 mls/hr IV ASDIRECTED TEDDY Sodium Chloride (Normal Saline) 1,000 mls @ 250 mls/hr IV ASDIRECTED TEDDY Last Admin: 04/06/17 12:32 Dose: 250 mls/hr Propofol (Diprivan 100 Ml) Confirm Administered Dose 100 mls @ as directed .ROUTE .STK-MED ONE Stop: 04/06/17 11:02 Last Admin: 04/06/17 12:44 Dose: Not Given Magnesium Sulfate 2 gm/ Premix 50 mls @ 25 mls/hr IV ONETIME ONE Stop: 04/06/17 15:38 Last Admin: 04/06/17 13:48 Dose: 25 mls/hr Dextrose/Sodium Chloride (Dextrose 5%-Normal Saline) 1,000 mls @ 250 mls/hr IV ASDIRECTED TEDDY Last Admin: 04/07/17 04:22 Dose: 250 mls/hr Thiamine HCl 100 mg/ Sodium (Chloride) 101 mls @ 200 mls/hr IV DAILY ONE Stop: 04/06/17 18:03 Last Admin: 04/06/17 18:37 Dose: 200 mls/hr Pantoprazole Sodium 80 mg/ (Sodium Chloride) 100 mls @ 8 mls/hr IV Q10H TEDDY Last Admin: 04/07/17 19:52 Dose: 8 mls/hr Dextrose/Sodium Chloride (Dextrose 5%-Normal Saline) 1,000 mls @ 50 mls/hr IV ASDIRECTED TEDDY Last Infusion: 04/08/17 07:55 Dose: 125 mls/hr Piperacillin Sod/Tazobactam (Sod 4.5 gm/ Sodium Chloride) 100 mls @ 200 mls/hr IV ONETIME ONE Stop: 04/08/17 10:29 Last Admin: 04/08/17 10:51 Dose: 200 mls/hr Sodium Chloride (Normal Saline) 500 mls @ 999 mls/hr IV .BOLUS ONE Stop: 04/08/17 18:16 Last Admin: 04/08/17 17:53 Dose: 999 mls/hr Midazolam HCl 50 mg/ Sodium (Chloride) 50 mls @ 1 mls/hr IV TITRATE TEDDY; 1 MG/ HR PRN Reason: Protocol Sodium Chloride (Normal Saline) Confirm Administered Dose 50 mls @ as directed .ROUTE .STK-MED ONE Stop: 04/08/17 20:29 Last Admin: 04/08/17 21:09 Dose: 50 ml Potassium Chloride 10 meq/ (Premix) 100 mls @ 100 mls/hr IV Q1H TEDDY Stop: 04/09/17 02:59 Last Admin: 04/09/17 01:27 Dose: 100 mls/hr Lorazepam (Ativan) 1 mg IVPUSH ONETIME ONE Stop: 04/06/17 00:08 Last Admin: 04/06/17 00:15 Dose: 1 mg Lorazepam (Ativan) 1 mg IVPUSH Q4H PRN PRN Reason: Anxiety Last Admin: 04/06/17 04:00 Dose: 1 mg Magnesium Oxide (Magnesium Oxide) 400 mg PO ONETIME ONE Stop: 04/06/17 07:16 Last Admin: 04/06/17 07:30 Dose: Not Given Midazolam HCl (Versed 1 Mg/Ml) 5 mg IVPUSH ONETIME ONE Stop: 04/06/17 12:52 Last Admin: 04/06/17 11:13 Dose: 5 mg Midazolam HCl (Versed 1 Mg/Ml) 5 mg .ROUTE .STK-MED ONE Stop: 04/06/17 14:01 Midazolam HCl (Versed 1 Mg/Ml) Confirm Administered Dose 20 mg .ROUTE .STK-MED ONE Stop: 04/08/17 20:19 Last Admin: 04/08/17 21:05 Dose: 20 mg Midazolam HCl (Versed 1 Mg/Ml) Confirm Administered Dose 30 mg .ROUTE .STK-MED ONE Stop: 04/08/17 20:29 Last Admin: 04/08/17 21:05 Dose: 30 mg Midazolam HCl (Versed 1 Mg/Ml) 50 mg IV ASDIRECTED PRN PRN Reason: Sedation Multivitamins (Thera) 1 each PO ONETIME ONE Stop: 04/06/17 04:41 Last Admin: 04/06/17 06:13 Dose: 1 each Pneumococcal Polyvalent Vaccine (Pneumovax 23) 0.5 ml SUBCUT .ONCE ONE Stop: 04/06/17 06:05 Last Admin: 04/06/17 06:41 Dose: Not Given Quetiapine Fumarate (Seroquel) 50 mg PO ONETIME ONE Stop: 04/06/17 04:44 Last Admin: 04/06/17 06:13 Dose: 50 mg Rocuronium [place] (Zemuron) 100 mg IVPUSH ONETIME ONE Stop: 04/06/17 12:52 Last Admin: 04/06/17 11:14 Dose: 100 mg Rocuronium [place] (Zemuron) 100 mg .ROUTE .STK-MED ONE Stop: 04/06/17 14:01 Thiamine HCl (Vitamin B-1) 100 mg PO BEDTIME TEDDY Thiamine HCl (Vitamin B-1) 200 mg IV ONETIME ONE Stop: 04/06/17 04:42 Last Admin: 04/06/17 06:12 Dose: 200 mg - Exam General: sedated HEENT: Pupils equal, Pupils reactive Neck: trachea midline, no JVD Lungs: Normal respiratory effort, Decreased breath sounds Cardiovascular: Regular Rate, Regular Rhythm Abdomen: bowel sounds present, soft, no tenderness, no distension (Male) Exam: Other (indwelling felix catheter) Back Exam: Decreased Range of Motion Extremities: no edema, normal pulses, no tenderness/swelling, no clubbing, no cyanosis, no calf tenderness Skin: warm, dry, intact Physical Findings Comments:: Sedated and Mechanically Intubated - Problem List Review Problem List Initiated/Reviewed/Updated: Yes - My Orders Last 24 Hours: My Active Orders 04/08/17 08:00 Levofloxacin/Dextrose 5%-Water [Levaquin in D5W 750 MG/150 ML] 750 mg Premix Bag 1 bag IV Q24H 04/08/17 08:41 Oxygen Therapy [RC] ASDIRECTED 04/08/17 09:00 Saccharomyces Boulardii [Florastor] 250 mg PO TID 04/08/17 12:30 Dextrose 5%-0.9% NaCl [Dextrose 5%-Normal Saline] 1,000 ml IV ASDIRECTED 04/08/17 18:00 Piperacillin/Tazobactam [Zosyn] 4.5 gm Sodium Chloride 0.9% [Normal Saline] 100 ml IV Q8H 04/08/17 19:40 Restraint Eval Need to Continue - 24 Hrs [OM.PC] Daily Restraint Monitoring Non-VIOL/Non-SD [OM.PC] Daily 04/08/17 21:13 Midazolam [Versed 1 MG/ML] 50 mg Sodium Chloride 0.9% [Normal Saline] 0 ml IV TITRATE 04/09/17 05:11 C-REACTIVE PROTEIN [CHEM] AM MAGNESIUM [CHEM] AM 04/09/17 05:43 BASIC METABOLIC PANEL,BMP [CHEM] AM CBC WITH AUTO DIFF [HEME] AM 04/09/17 06:00 Chest 1V Frontal [CR] Routine 04/09/17 07:00 ABG [BLOOD GAS ARTERIAL] [BG] Urgent 04/10/17 05:11 BASIC METABOLIC PANEL,BMP [CHEM] AM C-REACTIVE PROTEIN [CHEM] AM CBC WITH AUTO DIFF [HEME] AM MAGNESIUM [CHEM] AM - Plan Plan:: Assessment/Plan: Acute: Sedated and Mechanically Vented - 2/2 Acute Respiratory Failure/ Severe Agitation and DT - VT setting same as yesterday - ABG this am pH 7.40, pCO2 36.5 and pO2 60 at 35% FiO2, will increase FiO2 to 45% - Continue Moderate STEPHANIE - Will start fentanyl drip and titrate down his diprivan drip - Routine Vent care Aspiration Syndrome Vs PNA - Elevated WBC and CRP level - CXR shows increasing atelectasis - Will start IV Abx: Levaquin and Zosyn for pharmacy to renally dose - Serial CXR Upper GI Bleed (Uncertain how much damage caused by the pesticide he took) - Protonix Drip - He is off anticoagulation - Dr. Ritter following - Routine saline flush and suctioning to prevent blood clot formation in OG tube Suicide Attempt via Ingestion of Toxic Substance - 2-4 ounces of insecticide (unclear hoe much he actually took) - Poison control consulted - Supportive Care Organo-Phosphate Poisoning - Supportive Care - He received bedside bath per overnight nurse to remove further organic substance on him - Atropin IVP PNR for Symptomatic control - Pharmacy don't carry Pralidoxime plus unable to get ahold of on-call local pharmacy ETOH with DTs - ISIDORO level 0.20 - He usually drinks 3-6 beers QOD but drank 2 shots of fire ball per patient - CIWA protocol; CIWA score is low at this time - Seroquel/Librium/Clonidine/Topamax - Hydralzine and IVP BB for HR/BP control - Ativan for Abortive Seizure and Withdrawal Symptoms Poly-Substance Abuse - UDS: pos Amphetamine/Methamphetamine and THC - Admits to taking Clonazepam 5mg x1 plus ETOH last evening - SA consult Tobacco Dependence - Nicotine patch - Counseled on Smoking Cessation Hx/o MDD - Unknown if he is on any psychotropic medications at this time - No family members present at bedside - Tele-psych consult Seizures - Has had 2 episode already per nurse - Likely from combination above - Seizure precautions - Topamax for prevention - Ativan for Abortive Medication Plan: He remains in serious-critical condition Continue: CIWA Protocol, MVI, Folic, Acid and Thiamine Ativan for Abortive Seizure and Withdrawal Symptoms PRN meds for Withdrawal Symptoms Aspiration/Seizure Precautions LA and CPK to r/o PIS (Propofol Infusion Syndrome): normal SW/CM d/c planning Plan for extubation this am DVT ppx: SCDs due to upper GI Bleed, GI ppx: Protonix drip SA/Psych consult once extubated Code Status: 1 LOS > 96 hrs due to complexity of his presenting illness
[2017-04-09] MEDS: Levofloxacin/Dextrose 5%-Water 750 MG in Premix Bag 1 BAG IV SCH (08:42)
[2017-04-09] MEDS: Thiamine 200 MG/2 ML MDV IVPUSH SCH (08:43)
[2017-04-09] MEDS ORDERED: Modafinil 200 MG Tab PO SCH (09:00)
[2017-04-09] MEDS: Folic Acid 1 MG Tab PO SCH (09:27)
[2017-04-09] MEDS: Saccharomyces Boulardii (Probiotic) 250 MG Cap PO SCH ×4 (09:27→21:19)
[2017-04-09] MEDS: Multivitamins,Therapeutic Tab PO SCH (09:28)
[2017-04-09] MEDS: Topiramate 25 MG Tab PO SCH ×3 (09:28→21:19)
--- NOTE | 2017-04-09 11:10 | CR ---
Chest: Frontal view of the chest was obtained. Comparison: Previous chest x-ray of 04/09/17, 7:12 AM Heart size and mediastinum are normal. Nasogastric tube has been removed. Endotracheal tube has been removed. No acute infiltrates are seen. Bony structures are grossly intact. Impression: 1. Nasogastric tube and endotracheal tube have been removed. 2. Nothing acute is appreciated. Previous atelectasis shows improvement. Diagnostic code #1
[2017-04-09] MEDS: QUEtiapine 25 MG Tab PO ONE ×2 (12:50→13:07)
[2017-04-09] MEDS ORDERED: QUEtiapine 25 MG Tab PO ONE (17:20)
[2017-04-09] MEDS ORDERED: diphenhydrAMINE 50 MG/ML SDV IVPUSH PRN (18:40)
[2017-04-09] MEDS ORDERED: Loperamide 2 MG Cap PO PRN (19:45)
[2017-04-09] MEDS: LORazepam 2 MG/ML MDV IVPUSH PRN (19:47)
[2017-04-09] MEDS ORDERED: LORazepam 2 MG/ML MDV IVPUSH PRN (22:00)
[2017-04-10] MEDS: Piperacillin/Tazobactam 4.5 GM in Sodium Chloride 0.9% 100 ML IV SCH ×3 (02:16→18:01)
--- NOTE | 2017-04-10 06:47 | PCM.PN ---
- General Info Date of Service: 04/10/17 Admission Dx/Problem (Free Text): AMS and Attempted Suicide by Ingestion of Toxic Substance Subjective Update: Follow up Functional Status: Reports: pain controlled, tolerating diet, ambulating, urinating. Denies: new symptoms - Review of Systems General: Denies: Fever, Chills HEENT: Reports: no symptoms Pulmonary: Denies: shortness of breath Cardiovascular: Denies: Chest Pain Gastrointestinal: Denies: Abdominal pain, Nausea, Vomiting Genitourinary: Reports: no symptoms Musculoskeletal: Reports: no symptoms Skin: Reports: no symptoms Neurological: Reports: No Symptoms Psychiatric: Reports: depression, agitation, suicidal ideation. Denies: confusion Systems Review Comment:: He was agitated last night. Also expressed suicidal thoughts or harming himself. He has no acute issues this am. He is neither suicidal or homocidal. Awaiting Psych and SAC consult. His WBC is now 9.59 (16.26) and remains afebrile. His K is 3.3 an Mg level is 1.7. - Patient Data Vitals - most recent: Last Vital Signs Temp 37.4 C 04/10/17 04:00 Pulse 68 04/09/17 08:00 Resp 20 04/10/17 04:00 BP 111/78 04/10/17 04:00 Pulse Ox 96 04/10/17 04:00 Weight - most recent: 117.2 kg I&O - last 24 hours: Intake & Output 04/09/17 04/09/17 04/10/17 14:59 22:59 06:59 Intake Total 290 1866 100 Output Total 600 625 450 Balance -310 1241 -350 Lab Results last 24 hrs: Laboratory Results - last 24 hr 04/09/17 04/09/17 04/09/17 Range/Units 05:43 07:06 07:54 WBC (4.23-9.07) K/mm3 RBC (4.63-6.08) M/mm3 Hgb (13.7-17.5) gm/L Hct (40.1-51.0) % MCV (79.0-92.2) fl MCH (25.7-32.2) pg MCHC (32.2-35.5) g/dl RDW Std Deviation (35.1-43.9) fL Plt Count (163-337) K/mm3 MPV (9.4-12.3) fl Neut % (Auto) (34.0-67.9) % Lymph % (Auto) (21.8-53.1) % Stan[place] % (Auto) (5.3-12.2) % Eos % (Auto) (0.8-7.0) Baso % (Auto) (0.1-1.2) % Neut # (Auto) (1.78-5.38) K/mm3 Lymph # (Auto) (1.32-3.57) K/mm3 Stanly # (Auto) (0.30-0.82) K/mm3 Eos # (Auto) (0.04-0.54) K/mm3 Baso # (Auto) (0.01-0.08) K/mm3 Puncture Site Lt radial ABG pH 7.38 (7.35-7.45) ABG pCO2 37.9 (35.0-45.0) mmHg ABG pO2 68.0 L (80.0-100.0) mmHg ABG HCO3 21.8 L (22.0-26.0) meq/L ABG O2 Saturation 95.7 L (96.0-97.0) % ABG Base Excess -2.4 L (-2-2.0) A-a Gradient 173 mmHg O2 Delivery Device Ventilator FiO2 45.00 (21.00-100.00) % Tidal Volume 650.0 cc PEEP 5.0 cmH20 Sodium 143 (136-145) mEq/L Potassium 3.5 (3.5-5.1) mEq/L Chloride 110 H (98-107) mEq/L Carbon Dioxide 23 (21-32) mEq/L Anion Gap 13.5 (5-15) BUN 9 (7-18) mg/dL Creatinine 1.2 (0.7-1.3) mg/dL Est Cr Clr Drug Dosing 97.00 mL/min Estimated GFR (MDRD) > 60 (>60) mL/min BUN/Creatinine Ratio 7.5 L (14-18) Glucose 112 H (74-106) mg/dL Lactic Acid 1.1 (0.4-2.0) mmol/L Calcium 8.3 L (8.5-10.1) mg/dL Magnesium 1.8 (1.8-2.4) mg/dl C-Reactive Protein 22.3 H* (<1.0) mg/dL 04/10/17 Range/Units 05:10 WBC 9.59 H (4.23-9.07) K/mm3 RBC 4.02 L (4.63-6.08) M/mm3 Hgb 12.8 L (13.7-17.5) gm/L Hct 37.2 L (40.1-51.0) % MCV 92.5 H (79.0-92.2) fl MCH 31.8 (25.7-32.2) pg MCHC 34.4 (32.2-35.5) g/dl RDW Std Deviation 40.9 (35.1-43.9) fL Plt Count 244 (163-337) K/mm3 MPV 11.3 (9.4-12.3) fl Neut % (Auto) 57.9 (34.0-67.9) % Lymph % (Auto) 30.9 (21.8-53.1) % Stanly % (Auto) 7.8 (5.3-12.2) % Eos % (Auto) 3.1 (0.8-7.0) Baso % (Auto) 0.3 (0.1-1.2) % Neut # (Auto) 5.55 H (1.78-5.38) K/mm3 Lymph # (Auto) 2.96 (1.32-3.57) K/mm3 Stan[place] # (Auto) 0.75 (0.30-0.82) K/mm3 Eos # (Auto) 0.30 (0.04-0.54) K/mm3 Baso # (Auto) 0.03 (0.01-0.08) K/mm3 Puncture Site ABG pH (7.35-7.45) ABG pCO2 (35.0-45.0) mmHg ABG pO2 (80.0-100.0) mmHg ABG HCO3 (22.0-26.0) meq/L ABG O2 Saturation (96.0-97.0) % ABG Base Excess (-2-2.0) A-a Gradient mmHg O2 Delivery Device FiO2 (21.00-100.00) % Tidal Volume cc PEEP cmH20 Sodium (136-145) mEq/L Potassium (3.5-5.1) mEq/L Chloride (98-107) mEq/L Carbon Dioxide (21-32) mEq/L Anion Gap (5-15) BUN (7-18) mg/dL Creatinine (0.7-1.3) mg/dL Est Cr Clr Drug Dosing mL/min Estimated GFR (MDRD) (>60) mL/min BUN/Creatinine Ratio (14-18) Glucose (74-106) mg/dL Lactic Acid (0.4-2.0) mmol/L Calcium (8.5-10.1) mg/dL Magnesium (1.8-2.4) mg/dl C-Reactive Protein (<1.0) mg/dL Med Orders - Current: Current Medications Acetaminophen (Tylenol) 650 mg PO Q4H PRN PRN Reason: Pain (Mild 1-3)/fever Hydrocodone Bitart/Acetaminophen ([place] 325-5 Mg) 1 tab PO Q4H PRN PRN Reason: Pain (moderate 4-6) Last Admin: 04/07/17 19:49 Dose: 1 tab Albuterol/Ipratropium (Duoneb 3.0-0.5 Mg/3 Ml) 3 ml NEB Q4H PRN PRN Reason: Shortness Of Breath/wheezing Bisacodyl (Dulcolax) 5 mg PO DAILY PRN PRN Reason: Constipation Clonidine HCl (Catapres) 0.1 mg PO Q4H PRN PRN Reason: Agitation Diphenhydramine HCl (Benadryl) 25 mg IVPUSH BEDTIME PRN PRN Reason: Insomnia Last Admin: 04/09/17 19:47 Dose: 25 mg Docusate Sodium (Colace) 100 mg PO BID PRN PRN Reason: Constipation Folic Acid (Folic Acid) 1 mg PO DAILY TEDDY Last Admin: 04/09/17 09:27 Dose: Not Given Hydralazine HCl (Apresoline) 20 mg IVPUSH Q4H PRN PRN Reason: Hypertension Promethazine HCl 12.5 mg/ (Sodium Chloride) 50.5 mls @ 100 mls/hr IV Q6H PRN PRN Reason: Nausea/Vomiting Fentanyl 2,500 mcg/ Sodium (Chloride) 250 mls @ 11.9 mls/hr IV TITRATE TEDDY; 1 MCG/KG/HR PRN Reason: Protocol Last Titration: 04/08/17 20:10 Dose: 0.08 mcg/kg/hr, 1 mls/hr Propofol (Diprivan 100 Ml) 100 mls @ 3.57 mls/hr IV TITRATE TEDDY; 5 MCG/KG/MIN PRN Reason: Protocol Last Titration: 04/09/17 08:22 Dose: 15 mcg/kg/min, 10.71 mls/hr Levofloxacin/Dextrose 750 mg/ (Premix) 150 mls @ 100 mls/hr IV Q24H TEDDY Last Admin: 04/09/17 08:42 Dose: 100 mls/hr Piperacillin Sod/Tazobactam (Sod 4.5 gm/ Sodium Chloride) 100 mls @ 25 mls/hr IV Q8H TEDDY Last Admin: 04/10/17 02:16 Dose: 25 mls/hr Midazolam HCl 50 mg/ Sodium (Chloride) 50 mls @ 1 mls/hr IV TITRATE TEDDY; 1 MG/ HR PRN Reason: Protocol Last Titration: 04/09/17 05:09 Dose: 3 mg/hr, 3 mls/hr Loperamide HCl (Imodium) 4 mg PO Q6H PRN PRN Reason: Diarrhea Last Admin: 04/09/17 20:25 Dose: 4 mg Lorazepam (Ativan) 2 mg IVPUSH Q4H PRN PRN Reason: Seizures Last Admin: 04/09/17 19:47 Dose: 2 mg Lorazepam (Ativan) 0 mg IVPUSH Q4H PRN; Protocol PRN Reason: Withdrawal Symptoms Last Admin: 04/08/17 01:10 Dose: 2 mg Lorazepam (Ativan) 2 mg IVPUSH Q2H PRN PRN Reason: Withdrawal Symptoms Last Admin: 04/09/17 22:57 Dose: 2 mg Magnesium Sulfate (Pharmacy To Dose - Magnesium Replacement) 1 dose .XX ASDIRECTED [facility] Metoprolol Tartrate (Lopressor) 5 mg IVPUSH Q4H PRN PRN Reason: Tachycardia Multivitamins (Thera) 1 each PO DAILY [facility] Last Admin: 04/09/17 09:28 Dose: Not Given Ondansetron HCl (Zofran) 4 mg IV Q6H PRN PRN Reason: Nausea/Vomiting Last Admin: 04/06/17 13:58 Dose: 4 mg Polyethylene Glycol (Miralax) 17 gm PO DAILY PRN PRN Reason: Constipation Potassium Chloride (Pharmacy To Dose - Potassium Replacement) 1 dose .XX ASDIRECTED [facility] Quetiapine Fumarate (Seroquel) 50 mg PO DAILY [facility] Quetiapine Fumarate (Seroquel) 25 mg PO BEDTIME [facility] Saccharomyces Boulardii (Florastor) 250 mg PO TID [facility] Last Admin: 04/09/17 21:19 Dose: Not Given Senna/Docusate Sodium (Senna Plus) 1 tab PO BID PRN PRN Reason: Constipation Sodium Chloride (Saline Flush) 10 ml FLUSH ASDIRECTED PRN PRN Reason: Keep Vein Open Last Admin: 04/05/17 23:11 Dose: 10 ml Thiamine HCl (Vitamin B-1) 100 mg IVPUSH DAILY [facility] Last Admin: 04/09/17 08:43 Dose: 100 mg Topiramate (Topamax) 25 mg PO BID [facility] Last Admin: 04/09/17 21:19 Dose: Not Given Discontinued Medications Atropine Sulfate (Atropine 0.1 Mg/Ml) Confirm Administered Dose 2 mg .ROUTE .STK -MED ONE Stop: 04/06/17 04:20 Last Admin: 04/06/17 04:45 Dose: Not Given Atropine Sulfate (Atropine 0.1 Mg/Ml) 1 mg IVPUSH ONETIME ONE Stop: 04/06/17 04:42 Last Admin: 04/06/17 04:41 Dose: 1 mg Bumetanide (Bumex) 1 mg IVPUSH ONETIME ONE Stop: 04/07/17 08:21 Last Admin: 04/07/17 08:40 Dose: 1 mg Bumetanide (Bumex) 1 mg IVPUSH ONETIME ONE Stop: 04/07/17 21:54 Last Admin: 04/07/17 22:20 Dose: 1 mg Bumetanide (Bumex) 1 mg IVPUSH ONETIME ONE Stop: 04/08/17 22:56 Last Admin: 04/08/17 23:08 Dose: 1 mg Chlordiazepoxide HCl (Librium) 100 mg PO ONETIME ONE Stop: 04/06/17 04:45 Last Admin: 04/06/17 06:12 Dose: 100 mg Chlordiazepoxide HCl (Librium) 25 mg PO QID PRN PRN Reason: Withdrawal Symptoms Last Admin: 04/07/17 19:49 Dose: 25 mg Diazepam (Valium) Confirm Administered Dose 10 mg .ROUTE .STK-MED ONE Stop: 04/06/17 10:41 Last Admin: 04/06/17 10:52 Dose: 10 mg Diazepam (Valium) 10 mg IVPUSH ONETIME ONE Stop: 04/06/17 10:41 Last Admin: 04/06/17 10:41 Dose: 10 mg Enoxaparin Sodium (Lovenox) 40 mg SUBCUT DAILY [facility] Last Admin: 04/06/17 07:53 Dose: 40 mg Famotidine (Pepcid) 20 mg PO Q12H [facility] Last Admin: 04/06/17 06:40 Dose: Not Given Famotidine (Pepcid) 20 mg IVPUSH ONETIME ONE Stop: 04/06/17 04:48 Last Admin: 04/06/17 06:12 Dose: 20 mg Famotidine (Pepcid) 20 mg IVPUSH BID [facility] Last Admin: 04/07/17 08:41 Dose: 20 mg Folic Acid (Folic Acid) 1 mg PO ONETIME ONE Stop: 04/06/17 04:41 Last Admin: 04/06/17 06:13 Dose: 1 mg Folic Acid (Folic Acid) 1 mg PO DAILY [facility] Sodium Chloride (Normal Saline) 1,000 mls @ 999 mls/hr IV ONETIME [facility] Last Admin: 04/05/17 23:09 Dose: 999 mls/hr Sodium Chloride (Normal Saline) 1,000 mls @ 999 mls/hr IV ONETIME [facility] Last Admin: 04/06/17 00:57 Dose: 999 mls/hr Sodium Chloride (Normal Saline) 1,000 mls @ 150 mls/hr IV ASDIRECTED [facility] Sodium Chloride (Normal Saline) 1,000 mls @ 250 mls/hr IV ASDIRECTED [facility] Last Admin: 04/06/17 12:32 Dose: 250 mls/hr Propofol (Diprivan 100 Ml) Confirm Administered Dose 100 mls @ as directed .ROUTE .STK-MED ONE Stop: 04/06/17 11:02 Last Admin: 04/06/17 12:44 Dose: Not Given Magnesium Sulfate 2 gm/ Premix 50 mls @ 25 mls/hr IV ONETIME ONE Stop: 04/06/17 15:38 Last Admin: 04/06/17 13:48 Dose: 25 mls/hr Dextrose/Sodium Chloride (Dextrose 5%-Normal Saline) 1,000 mls @ 250 mls/hr IV ASDIRECTED TEDDY Last Admin: 04/07/17 04:22 Dose: 250 mls/hr Thiamine HCl 100 mg/ Sodium (Chloride) 101 mls @ 200 mls/hr IV DAILY ONE Stop: 04/06/17 18:03 Last Admin: 04/06/17 18:37 Dose: 200 mls/hr Pantoprazole Sodium 80 mg/ (Sodium Chloride) 100 mls @ 8 mls/hr IV Q10H TEDDY Last Admin: 04/07/17 19:52 Dose: 8 mls/hr Dextrose/Sodium Chloride (Dextrose 5%-Normal Saline) 1,000 mls @ 50 mls/hr IV ASDIRECTED TEDDY Last Infusion: 04/08/17 07:55 Dose: 125 mls/hr Pantoprazole Sodium 80 mg/ (Sodium Chloride) 100 mls @ 8 mls/hr IV ASDIRECTED TEDDY Last Admin: 04/08/17 21:04 Dose: 8 mls/hr Piperacillin Sod/Tazobactam (Sod 4.5 gm/ Sodium Chloride) 100 mls @ 200 mls/hr IV ONETIME ONE Stop: 04/08/17 10:29 Last Admin: 04/08/17 10:51 Dose: 200 mls/hr Dextrose/Sodium Chloride (Dextrose 5%-Normal Saline) 1,000 mls @ 125 mls/hr IV ASDIRECTED TEDDY Last Admin: 04/08/17 21:17 Dose: 125 mls/hr Sodium Chloride (Normal Saline) 500 mls @ 999 mls/hr IV .BOLUS ONE Stop: 04/08/17 18:16 Last Admin: 04/08/17 17:53 Dose: 999 mls/hr Midazolam HCl 50 mg/ Sodium (Chloride) 50 mls @ 1 mls/hr IV TITRATE TEDDY; 1 MG/ HR PRN Reason: Protocol Sodium Chloride (Normal Saline) Confirm Administered Dose 50 mls @ as directed .ROUTE .STK-MED ONE Stop: 04/08/17 20:29 Last Admin: 04/08/17 21:09 Dose: 50 ml Potassium Chloride 10 meq/ (Premix) 100 mls @ 100 mls/hr IV Q1H TEDDY Stop: 04/09/17 02:59 Last Admin: 04/09/17 01:27 Dose: 100 mls/hr Lorazepam (Ativan) 1 mg IVPUSH ONETIME ONE Stop: 04/06/17 00:08 Last Admin: 04/06/17 00:15 Dose: 1 mg Lorazepam (Ativan) 1 mg IVPUSH Q4H PRN PRN Reason: Anxiety Last Admin: 04/06/17 04:00 Dose: 1 mg Magnesium Oxide (Magnesium Oxide) 400 mg PO ONETIME ONE Stop: 04/06/17 07:16 Last Admin: 04/06/17 07:30 Dose: Not Given Midazolam HCl (Versed 1 Mg/Ml) 5 mg IVPUSH ONETIME ONE Stop: 04/06/17 12:52 Last Admin: 04/06/17 11:13 Dose: 5 mg Midazolam HCl (Versed 1 Mg/Ml) 5 mg .ROUTE .STK-MED ONE Stop: 04/06/17 14:01 Midazolam HCl (Versed 1 Mg/Ml) Confirm Administered Dose 20 mg .ROUTE .STK-MED ONE Stop: 04/08/17 20:19 Last Admin: 04/08/17 21:05 Dose: 20 mg Midazolam HCl (Versed 1 Mg/Ml) Confirm Administered Dose 30 mg .ROUTE .STK-MED ONE Stop: 04/08/17 20:29 Last Admin: 04/08/17 21:05 Dose: 30 mg Midazolam HCl (Versed 1 Mg/Ml) 50 mg IV ASDIRECTED PRN PRN Reason: Sedation Modafinil (Provigil) 200 mg PO DAILY TEDDY Last Admin: 04/09/17 09:17 Dose: 200 mg Multivitamins (Thera) 1 each PO ONETIME ONE Stop: 04/06/17 04:41 Last Admin: 04/06/17 06:13 Dose: 1 each Pneumococcal Polyvalent Vaccine (Pneumovax 23) 0.5 ml SUBCUT .ONCE ONE Stop: 04/06/17 06:05 Last Admin: 04/06/17 06:41 Dose: Not Given Quetiapine Fumarate (Seroquel) 50 mg PO ONETIME ONE Stop: 04/06/17 04:44 Last Admin: 04/06/17 06:13 Dose: 50 mg Quetiapine Fumarate (Seroquel) 50 mg PO ONETIME ONE Stop: 04/09/17 11:07 Last Admin: 04/09/17 13:07 Dose: Not Given Quetiapine Fumarate (Seroquel) 50 mg PO ONETIME ONE Stop: 04/09/17 17:21 Last Admin: 04/09/17 17:28 Dose: 50 mg Rocuronium Elrama (Zemuron) 100 mg IVPUSH ONETIME ONE Stop: 04/06/17 12:52 Last Admin: 04/06/17 11:14 Dose: 100 mg Rocuronium Elrama (Zemuron) 100 mg .ROUTE .STK-MED ONE Stop: 04/06/17 14:01 Thiamine HCl (Vitamin B-1) 100 mg PO BEDTIME ETDDY Thiamine HCl (Vitamin B-1) 200 mg IV ONETIME ONE Stop: 04/06/17 04:42 Last Admin: 04/06/17 06:12 Dose: 200 mg - Exam General: sedated HEENT: Pupils equal, Pupils reactive Neck: supple Lungs: Clear to auscultation, Normal respiratory effort Cardiovascular: Regular Rate, Regular Rhythm Abdomen: bowel sounds present, no tenderness, no distension (Male) Exam: Other (indwelling felix catheter) Back Exam: Normal Inspection, Full Range of Motion Extremities: no edema, normal pulses Peripheral Pulses: 3+: Posterior Tibial (L), Posterior Tibial (R), Dorsalis Pedis (L), Dorsalis Pedis (R) Skin: warm, dry, intact Neurological: no new focal deficit Psy/Mental Status: other (sedated/lethargic) - Problem List Review Problem List Initiated/Reviewed/Updated: Yes - My Orders Last 24 Hours: My Active Orders 04/09/17 06:00 Chest 1V Frontal [CR] Routine 04/09/17 09:44 Incentive Spirometry [RT Incentive Spirometry] [RC] .PRN 04/09/17 16:20 Up ad Marisa [RC] ASDIRECTED 04/09/17 18:40 diphenhydrAMINE [Benadryl] 25 mg IVPUSH BEDTIME PRN 04/09/17 19:45 Loperamide [Imodium] 4 mg PO Q6H PRN 04/09/17 22:00 LORazepam [Ativan] 2 mg IVPUSH Q2H PRN 04/09/17 Dinner Regular Diet [DIET] 04/10/17 03:24 OT Evaluation and Treatment [CONS] Routine PT Evaluation and Treatment [CONS] Routine 04/10/17 05:10 BASIC METABOLIC PANEL,BMP [CHEM] AM C-REACTIVE PROTEIN [CHEM] AM MAGNESIUM [CHEM] AM 04/10/17 09:00 QUEtiapine [SEROquel] 50 mg PO DAILY 04/10/17 21:00 QUEtiapine [SEROquel] 25 mg PO BEDTIME - Plan Plan:: Assessment/Plan: Acute: Aspiration Syndrome vs PNA - WBC and CRP levels improving - CXR shows increasing atelectasis - Continue start IV Abx: Levaquin and Zosyn for pharmacy to renally dose - Serial CXR Electrolyte Abnormality - Low K and Mg levels - Pharmacy to replete and monitor Chronic ETOH Abuse - Pending SAC consult Poly-Substance Abuse - UDS: pos Amphetamine/Methamphetamine and THC - Took Clonazepam 5 mg x1 (Mom's medications) plus ETOH last evening - SA consulted Tobacco Dependence - Nicotine patch - Counseled on Smoking Cessation MDD/Suicidal Attempt/Suicidal Ideation - Unknown if he is on any psychotropic medications at this time - No family members present at bedside - Tele-psych consult Resolved: Sedated and Mechanically Vented - 2/2 Acute Respiratory Failure/ Severe Agitation and DT - VT setting same as yesterday - ABG this am pH 7.40, pCO2 36.5 and pO2 60 at 35% FiO2, will increase FiO2 to 45% - Continue Moderate STEPHANIE - Will start fentanyl drip and titrate down his diprivan drip - Routine Vent care S/p Upper GI Bleed (Uncertain how much damage caused by the pesticide he took) - Protonix Drip - He is off anticoagulation - Dr. Ritter following - Routine saline flush and suctioning to prevent blood clot formation in OG tube Seizures - Has had 2 episode already per nurse - Likely from combination above - Seizure precautions - Topamax for prevention - Ativan for Abortive Medication Organo-Phosphate Poisoning - Supportive Care - He received bedside bath per overnight nurse to remove further organic substance on him - Atropin IVP PRN for Symptomatic control - Pharmacy don't carry Pralidoxime plus unable to get ahold of on-call local pharmacy ETOH with DTs - ISIDORO level 0.20 - He usually drinks 3-6 beers QOD but drank 2 shots of fire ball per patient - CIWA protocol; CIWA score is low at this time - Seroquel/Librium/Clonidine/Topamax - Hydralzine and IVP BB for HR/BP control - Ativan for Abortive Seizure and Withdrawal Symptoms Plan: He is now fairly stable Transfer to [facility] with 1:1 care High suicidal risk Continue: CIWA Protocol, MVI, Folic, Acid and Thiamine Ativan for Abortive Seizure and Withdrawal Symptoms PRN meds for Withdrawal Symptoms Aspiration/Seizure Precautions Patient is on 24hr hold if he leaves AMA SW/CM d/c planning DVT ppx: SCDs due to upper GI Bleed, GI ppx: Oral Protonix BID SA/Psych consult Code Status: 1 LOS > 96 hrs due to complexity of his presenting illness and also for possible chemical rehab placement
[2017-04-10] MEDS ORDERED: Magnesium Oxide 400 MG Tab PO ONE (08:15)
[2017-04-10] MEDS: Multivitamins,Therapeutic Tab PO SCH (08:15)
[2017-04-10] MEDS: Potassium Chloride 20 MEQ Tab.ER PO SCH ×2 (08:15→11:58)
[2017-04-10] MEDS: Saccharomyces Boulardii (Probiotic) 250 MG Cap PO SCH ×3 (08:16→21:35)
[2017-04-10] MEDS: Topiramate 25 MG Tab PO SCH ×2 (08:16→21:36)
[2017-04-10] MEDS: Folic Acid 1 MG Tab PO SCH (08:16)
[2017-04-10] MEDS: Sodium Chloride 0.9% 10 ML Syringe FLUSH PRN (08:17)
[2017-04-10] MEDS: Thiamine 200 MG/2 ML MDV IVPUSH SCH (08:18)
[2017-04-10] MEDS: Levofloxacin/Dextrose 5%-Water 750 MG in Premix Bag 1 BAG IV SCH (08:26)
--- NOTE | 2017-04-10 08:40 | CONS ---
CONSULTING PHYSICIAN: Arron Ritter MD DATE OF CONSULTATION: 04/07/2017 HISTORY OF PRESENT ILLNESS: This is a 31-year-old, who came into the emergency room yesterday having ingested 2 ounces of insecticide, organophosphate. He admitted to drinking alcohol last night and taking amphetamines. He is feeling nausea, had dry heaves but no chest or abdominal pain. Later has been having sweating episodes. He was placed in the ICU, given atropine and later was intubated. He is on the ventilator on a propofol drip. I was asked to see the patient because of bright blood from his NG tube. His hemoglobin has been stable, initially 15.9 and has dropped down to 14. He has not had any black tarry stools. The patient is well sedated. The patient's most of the history comes from the previous H and P. PAST MEDICAL HISTORY: Hypertension, enlarged ventricle, report of anxiety and depression, psychiatric history. SOCIAL HISTORY: Every day smoker, use of alcohol, use of cocaine, amphetamine, and other recreational drugs not mentioned. FAMILY HISTORY: Negative. REVIEW OF SYSTEMS: Unable to obtain. He is on the ventilator and sedated. PHYSICAL EXAMINATION: GENERAL: Reveals a sedated that patient. EYES: Pupils equal, round, and reactive to light. Oral cavity healthy, endotracheal tube noted, and a nasogastric tube is noted. LUNGS: Clear. No rales, rhonchi, fremitus, or dullness. ABDOMEN: Soft. No tenderness, guarding, or rebound. EXTREMITIES: No edema and no sensory deficit, sedated, and does move all 4 extremities. PSYCHIATRIC: Unknown. SKIN: Warm and dry. VITAL SIGNS: Show temperature 99, pulse 75, blood pressure 139/79. ASSESSMENT: Upper gastrointestinal bleed, likely due to gastritis. RECOMMENDATION: At this moment is just observation. Proton pump inhibitors and removal of the NG tube at the first competing moment and the gastritis likely due to his ingestion of organophosphates. MMODAL /[id number]
[2017-04-10] MEDS ORDERED: QUEtiapine 25 MG Tab PO SCH ×3 (09:00→21:00)
--- NOTE | 2017-04-10 11:14 | CR ---
Chest: Frontal view of the chest was obtained. Comparison: Previous chest x-ray of 04/08/17. Mild right basilar atelectasis is seen. Left basilar atelectasis is improved from prior exam. Heart size and mediastinum are normal. Bony structures are grossly intact. Nasogastric tube is seen with tip lying in the region of the stomach. Endotracheal tube is seen lying at the level of the clavicles. Impression: 1. Slight right basilar atelectasis. 2. Stable position of endotracheal tube and nasogastric tube. Diagnostic code #3 Agree with preliminary report issued by [facility] ([facility] preliminary report dictated on 04/09/17, 8:48 AM Central Time)
[2017-04-10] MEDS ORDERED: Benzocaine/Cetylpyridinium/Menthol Lozenge MUCMEM PRN (11:24)
[2017-04-10] MEDS: Pantoprazole 40 MG Tab.CR PO SCH (15:48)
--- NOTE | 2017-04-10 20:43 | CONS ---
CONSULTING PHYSICIAN: Souleymane Aguilar MD DATE OF CONSULTATION: 04/10/2017 Psychiatric Inpatient Consultation This is a 60-minute inpatient clinical event. IDENTIFICATION: The patient is a 31-year-old male, who is admitted to the inpatient MICU at [facility] in [place], [place], on 04/05/2017. He is seen for psychiatric evaluation. CHIEF COMPLAINT: "I drank a bunch of insecticide." HISTORY OF PRESENT ILLNESS: The patient is a 31-year-old male, reports that he was having some relationship issues with an ex and he states "I want my daughter out of her mom's place. I felt trapped." Subsequently, the patient states that he drank a bunch of insecticide "to get their attention and I think I did that." He states that he had been drinking alcohol prior to the event but states he has only been drinking "about 2 beers a day, not too much." He states that the suicide attempt was his first suicide attempt and that "it is a complex question" when asked whether he had been thinking about killing himself for a time or if this was an impulsive event. He is denying that he is suicidal or homicidal at this point in time, but he does also state after this question is asked "what is the difference. I just want to go home." He denies any psychotic, delusional, or paranoid. He does endorse symptoms of depression and sadness. He reports anxiety and he does also endorse mood swings and notes "I just do not feeling like this." MEDICATIONS: At time of admission, none. ALLERGIES: No known drug allergies. PAST MEDICAL HISTORY: History of dental abscess. REVIEW OF SYSTEMS: Aside from dentition, all other major organ systems are negative at this point in time for acute difficulties, complications, safe for systemic issues regarding the insecticide overdose and which are currently being medically stabilized. FAMILY PSYCHIATRIC AND CD HISTORY: The patient reports father had a history of alcoholism. PAST PSYCHIATRIC AND CD HISTORY: The patient denies any previous psychiatric hospitalizations or chemical dependency treatment. He states he has 2 DWIs in the past, last one being in 2011. He states he has been drinking 2 beers a day lately. He states this is his first suicide attempt. He reports that he has been on Risperdal in the past but this may have caused have gynecomastia, he is not certain why he was taking this medication. PAST PSYCHIATRIC DIAGNOSIS: Includes depression, anxiety and per staff report, a history of meth dependence and cannabis dependence. SOCIAL HISTORY: The patient is stating he is born and raised in the [facility] area. He has been working various jobs. He has never been nor involved in any current relationships. He has a 14-year-old daughter that he has joint custody of. He is currently living in [place], [place], with his mother. Denies any prior service or current legal difficulties. He states he is a Buddhist in terms of his lorena formation. He enjoys playing video games, frisbee, golf and then he is states he also is "looking for a job." MENTAL STATUS EXAM: The patient is a 31-year-old, soft-spoken, white male, in no apparent distress. Speech is of slow rate and rhythm. The patient is cognitively oriented x3, person, place, and date. Psychomotor activities within normal limits. There are no abnormal motor movements or tics observed. Gait and station are not observed. This patient is bedbound during the course of the inpatient consult. Mood is depressed. Affect is consistent with stated mood, quite restricted but cooperative overall for the purposes of the inpatient consult. There is no behavioral or stated evidence of acute suicidal or homicidal ideation or acute psychotic, delusional, paranoid symptoms. Thought processes are significant for some thought blocking and slow thought processes. There are no acute manic symptoms. No loose associations evident. Judgment and insight do appear impaired. At this point in time, motivation for help appears poor. VITALS: 138/97, 75, 15, 98.3 degrees. IMPRESSION: [place] I: 1. Major depressive disorder, severe, F32.3. 2. Suspected alcohol dependence, F10.20. 3. Anxiety disorder, not other specified, F41.9. 4. Rule out bipolar affect disease, mixed type, F31.60. [place] II: None. [place] III: History of dental abscess. [place] IV: Severe. [place] V: 50. PLAN: 1. Maintain the patient on one-to-one status while on unit for safety purposes. 2. AA rep to visit the patient. 3. Chemical dependency consult to assess the patient for the need for chemical dependency treatment services. 4. Pastoral guidance. 5. Recommend transferring the patient to inpatient psychiatry when medically stable for further psychiatric stabilization. 6. Recommend thiamine supplementation. 7. Recommend folic acid supplementation. 8. Recommend Seroquel 75 mg at bedtime to help with clarity of mood stability, anxiety reduction, sleep initiation, and maintenance. 9. Recommend continuing Topamax 25 mg b.i.d. as prescribed for mood stability and seizure prophylaxis. 10.[facility] protocol. 11.We will continue follow up with the patient on an as-needed basis while he remains on the inpatient MICU. 12.We will follow up with the patient sooner if any complications in the interim. 13.We would recommend commitment papers as the patient does appear holdable as he is a danger to himself in his current state if he attempts to leave AMA or refuses transfer to inpatient psych when he is medically stabilized. 14.Crisis plan is in place. JAYME /[id number]
[2017-04-11] MEDS: Piperacillin/Tazobactam 4.5 GM in Sodium Chloride 0.9% 100 ML IV SCH ×2 (01:35→10:24)
[2017-04-11] MEDS: Pantoprazole 40 MG Tab.CR PO SCH (05:53)
--- NOTE | 2017-04-11 08:11 | PCM.DCSUM1 ---
Discharge Summary - Hospital Course Brief History: This is a 31 yo white male with no significant past medical hx/o who comes in to ED for further evaluation after ingesting 2-4 ounces of insecticide and was admitted for ETOH Detoxification, Substance Abuse and Organophosphate Poisoning. - Discharge Data Discharge Date: 04/11/17 Discharge Disposition: DC/Tfer to Inpt Rehab Fac 62 Condition: Good - Discharge Diagnosis/Problem(s) (1) Major depress dis, severe SNOMED Code(s): 034602196 ICD Code: F32.2 - MAJOR DEPRESSV DISORD, SINGLE EPSD, SEV W/O PSYCH FEATURES Status: Acute (2) Suicide attempt SNOMED Code(s): 82185110 ICD Code: T14.91 - SUICIDE ATTEMPT Status: Acute (3) Delirium tremens SNOMED Code(s): 9663973, 01159334 ICD Code: F10.231 - ALCOHOL DEPENDENCE WITH WITHDRAWAL DELIRIUM Status: Resolved (4) Organophosphate insecticide poisoning SNOMED Code(s): 6751580 ICD Code: T60.0X1A - TOXIC EFFECT OF ORGANOPHOS AND CARBAMATE INSECT, ACC, INIT Status: Ruled-out Qualifiers: Injury intent: intentional self-harm (5) Alcohol intoxication SNOMED Code(s): 73379230 ICD Code: F10.929 - ALCOHOL USE, UNSPECIFIED WITH INTOXICATION, UNSPECIFIED Status: Acute Qualifiers: Complication of substance-induced condition: with delirium Qualified Code(s ): F10.921 - Alcohol use, unspecified with intoxication delirium (6) Ingestion of foreign substance SNOMED Code(s): 65682228 ICD Code: T18.9XXA - FOREIGN BODY OF ALIMENTARY TRACT, PART UNSP, INIT ENCNTR Status: Resolved Qualifiers: Encounter type: initial encounter Qualified Code(s): T18.9XXA - Foreign body of alimentary tract, part unspecified, initial encounter - Patient Summary/Data Operative Procedure(s) Performed: None Complications: None Consults: Consultations 04/06/17 04:39 Consult to Case Management [CONS] Routine Consult to Physician [CONS] Routine Consult to Mushroom Farmer [CONS] Routine Consult to Spiritual Care [CONS] Routine Respiratory Care Assess and Treatment [CONS] Routine 04/06/17 05:26 Consult for Substance Abuse [CONS] Routine 04/06/17 19:34 Consult to Physician [CONS] Routine 04/10/17 03:24 OT Evaluation and Treatment [CONS] Routine PT Evaluation and Treatment [CONS] Routine Hospital Course: Patient was primarily admitted for alcohol detoxification, substance abuse and organophosphate poisoning. He received supportive care and appropriate medications for symptomatic control. He was also put on CIWA protocol for withdrawal symptoms. His hospital course was complicated by the development of delirium tremens. Patient has had a few episodes of seizures and went into severe agitation. We tried our best to calm him down but he failed to respond to medications and conservative measures. With worsening DTs and mental status, patient was immediately intubated and placed on mechanical ventilation. While on mechanical ventilation, patient developed bleeding gastritis which we felt was due to the pesticide he took. We did routine OG suctioning along with Protonix drip and his GI bleed resolved. Dr. Ritter was consulted but no additional testing recommended. On this admission, patient developed aspiration syndrome due to altered mental status. But with appropriate antibiotics and routine respiratory care, his symptoms resolved. His follow-up chest x-ray on the day of discharge showed no acute infiltrate. Patient was seen by substance abuse counselor as well as tele-psych. Both recommended inpatient treatment for chemical dependency and inpatient treatment. Dr. Aguilar had started him on Seroquel as well as Topamax for patient' s underlying psychiatric illness. Patient tolerated both medications well. Patient is now stable for discharge. However, given that the patient is still suicidal and had expressed thoughts on killing himself, he will be transferred to [facility] for further care. Patient will be admitted under the services of Teresa Tinoco NP-Psych. Patient will leave here via ground as soon as local [facility] staff arrives for transportation. - Patient Instructions Diet: Usual Diet as Tolerated Activity: As Tolerated Driving: Do Not Drive Showering/Bathing: May Shower Notify Provider of: Fever, Increased Pain, Nausea and/or Vomiting Other/Special Instructions: - Transfer to [facility] for Psych inpatient treatment - Discharge Plan Prescriptions/Med Rec: QUEtiapine [SEROquel] 75 mg PO BEDTIME #120 tablet Topiramate [Topamax] 25 mg PO BID #60 tablet Home Medications: Home Meds QUEtiapine [SEROquel] 75 mg PO BEDTIME #120 tablet 04/11/17 [Rx] Topiramate [Topamax] 25 mg PO BID #60 tablet 04/11/17 [Rx] Patient Handouts: Smoking Cessation, Tips for Success, [id number], Stimulant Use Disorder-Amphetamines, Cannabis Use Disorder, Self-Destructive Behavior, Suicidal Feelings: How to Help Yourself, Finding Treatment for Addiction, Stimulant Use Disorder-Methamphetamines - Discharge Summary/Plan Comment DC Time >30 min.: Yes (45) Discharge Summary/Plan Comment: Transfer to [facility] for Inpatient Psych Treatment - General Info Date of Service: 04/18/17 Admission Dx/Problem (Free Text: AMS and Attempted Suicide by Ingestion of Toxic Substance Subjective Update: Follow up Functional Status: Reports: pain controlled - Review of Systems General: Denies: Fever, Chills HEENT: Reports: no symptoms Pulmonary: Denies: shortness of breath Cardiovascular: Denies: Chest Pain Gastrointestinal: Denies: Abdominal pain, Nausea, Vomiting Genitourinary: Reports: no symptoms Musculoskeletal: Reports: no symptoms Skin: Reports: no symptoms Neurological: Denies: Confusion, Dizziness, Weakness, Gait Disturbance Psychiatric: Reports: depression. Denies: anxiety, agitation, hallucinations, suicidal ideation - Patient Data Vitals - Most Recent: Last Vital Signs Temp 37.1 C 04/11/17 03:00 Pulse 82 04/10/17 16:00 Resp 16 04/11/17 03:00 BP 139/82 04/11/17 03:00 Pulse Ox 93 L 04/11/17 03:00 Weight - Most Recent: 116.709 kg I&O - Last 24 hours: Intake & Output 04/10/17 04/11/17 04/11/17 22:59 06:59 14:59 Intake Total 210 601 Output Total 700 600 700 Balance -490 1 -700 Med Orders - Current: Current Medications Acetaminophen (Tylenol) 650 mg PO Q4H PRN PRN Reason: Pain (Mild 1-3)/fever Hydrocodone Bitart/Acetaminophen (Cozad 325-5 Mg) 1 tab PO Q4H PRN PRN Reason: Pain (moderate 4-6) Last Admin: 04/07/17 19:49 Dose: 1 tab Albuterol/Ipratropium (Duoneb 3.0-0.5 Mg/3 Ml) 3 ml NEB Q4H PRN PRN Reason: Shortness Of Breath/wheezing Benzocaine/Menthol (Cepacol Sore Throat) 1 lozenge MUCMEM QID PRN PRN Reason: Sore Throat Bisacodyl (Dulcolax) 5 mg PO DAILY PRN PRN Reason: Constipation Clonidine HCl (Catapres) 0.1 mg PO Q4H PRN PRN Reason: Agitation Diphenhydramine HCl (Benadryl) 25 mg IVPUSH BEDTIME PRN PRN Reason: Insomnia Last Admin: 04/09/17 19:47 Dose: 25 mg Docusate Sodium (Colace) 100 mg PO BID PRN PRN Reason: Constipation Folic Acid (Folic Acid) 1 mg PO DAILY TEDDY Last Admin: 04/10/17 08:16 Dose: 1 mg Hydralazine HCl (Apresoline) 20 mg IVPUSH Q4H PRN PRN Reason: Hypertension Promethazine HCl 12.5 mg/ (Sodium Chloride) 50.5 mls @ 100 mls/hr IV Q6H PRN PRN Reason: Nausea/Vomiting Fentanyl 2,500 mcg/ Sodium (Chloride) 250 mls @ 11.9 mls/hr IV TITRATE TEDDY; 1 MCG/KG/HR PRN Reason: Protocol Last Titration: 04/08/17 20:10 Dose: 0.08 mcg/kg/hr, 1 mls/hr Propofol (Diprivan 100 Ml) 100 mls @ 3.57 mls/hr IV TITRATE TEDDY; 5 MCG/KG/MIN PRN Reason: Protocol Last Titration: 04/09/17 08:22 Dose: 15 mcg/kg/min, 10.71 mls/hr Levofloxacin/Dextrose 750 mg/ (Premix) 150 mls @ 100 mls/hr IV Q24H TEDDY Last Admin: 04/10/17 08:26 Dose: 100 mls/hr Piperacillin Sod/Tazobactam (Sod 4.5 gm/ Sodium Chloride) 100 mls @ 25 mls/hr IV Q8H TEDDY Last Admin: 04/11/17 01:35 Dose: 25 mls/hr Midazolam HCl 50 mg/ Sodium (Chloride) 50 mls @ 1 mls/hr IV TITRATE TEDDY; 1 MG/ HR PRN Reason: Protocol Last Titration: 04/09/17 05:09 Dose: 3 mg/hr, 3 mls/hr Loperamide HCl (Imodium) 4 mg PO Q6H PRN PRN Reason: Diarrhea Last Admin: 04/09/17 20:25 Dose: 4 mg Lorazepam (Ativan) 2 mg IVPUSH Q4H PRN PRN Reason: Seizures Last Admin: 04/09/17 19:47 Dose: 2 mg Lorazepam (Ativan) 0 mg IVPUSH Q4H PRN; Protocol PRN Reason: Withdrawal Symptoms Last Admin: 04/08/17 01:10 Dose: 2 mg Lorazepam (Ativan) 2 mg IVPUSH Q2H PRN PRN Reason: Withdrawal Symptoms Last Admin: 04/09/17 22:57 Dose: 2 mg Magnesium Sulfate (Pharmacy To Dose - Magnesium Replacement) 1 dose .XX ASDIRECTED [facility] Metoprolol Tartrate (Lopressor) 5 mg IVPUSH Q4H PRN PRN Reason: Tachycardia Multivitamins (Thera) 1 each PO DAILY [facility] Last Admin: 04/10/17 08:15 Dose: 1 each Ondansetron HCl (Zofran) 4 mg IV Q6H PRN PRN Reason: Nausea/Vomiting Last Admin: 04/06/17 13:58 Dose: 4 mg Pantoprazole Sodium (Protonix) 40 mg PO BIDAC [facility] Last Admin: 04/11/17 05:53 Dose: 40 mg Polyethylene Glycol (Miralax) 17 gm PO DAILY PRN PRN Reason: Constipation Potassium Chloride (Pharmacy To Dose - Potassium Replacement) 1 dose .XX ASDIRECTED [facility] Quetiapine Fumarate (Seroquel) 75 mg PO BEDTIME [facility] Last Admin: 04/10/17 21:36 Dose: 75 mg Saccharomyces Boulardii (Florastor) 250 mg PO TID [facility] Last Admin: 04/10/17 21:35 Dose: 250 mg Senna/Docusate Sodium (Senna Plus) 1 tab PO BID PRN PRN Reason: Constipation Sodium Chloride (Saline Flush) 10 ml FLUSH ASDIRECTED PRN PRN Reason: Keep Vein Open Last Admin: 04/10/17 08:17 Dose: 10 ml Thiamine HCl (Vitamin B-1) 100 mg IVPUSH DAILY [facility] Last Admin: 04/10/17 08:18 Dose: 100 mg Topiramate (Topamax) 25 mg PO BID [facility] Last Admin: 04/10/17 21:36 Dose: 25 mg Discontinued Medications Atropine Sulfate (Atropine 0.1 Mg/Ml) Confirm Administered Dose 2 mg .ROUTE .STK -MED ONE Stop: 04/06/17 04:20 Last Admin: 04/06/17 04:45 Dose: Not Given Atropine Sulfate (Atropine 0.1 Mg/Ml) 1 mg IVPUSH ONETIME ONE Stop: 04/06/17 04:42 Last Admin: 04/06/17 04:41 Dose: 1 mg Bumetanide (Bumex) 1 mg IVPUSH ONETIME ONE Stop: 04/07/17 08:21 Last Admin: 04/07/17 08:40 Dose: 1 mg Bumetanide (Bumex) 1 mg IVPUSH ONETIME ONE Stop: 04/07/17 21:54 Last Admin: 04/07/17 22:20 Dose: 1 mg Bumetanide (Bumex) 1 mg IVPUSH ONETIME ONE Stop: 04/08/17 22:56 Last Admin: 04/08/17 23:08 Dose: 1 mg Chlordiazepoxide HCl (Librium) 100 mg PO ONETIME ONE Stop: 04/06/17 04:45 Last Admin: 04/06/17 06:12 Dose: 100 mg Chlordiazepoxide HCl (Librium) 25 mg PO QID PRN PRN Reason: Withdrawal Symptoms Last Admin: 04/07/17 19:49 Dose: 25 mg Diazepam (Valium) Confirm Administered Dose 10 mg .ROUTE .STK-MED ONE Stop: 04/06/17 10:41 Last Admin: 04/06/17 10:52 Dose: 10 mg Diazepam (Valium) 10 mg IVPUSH ONETIME ONE Stop: 04/06/17 10:41 Last Admin: 04/06/17 10:41 Dose: 10 mg Enoxaparin Sodium (Lovenox) 40 mg SUBCUT DAILY [facility] Last Admin: 04/06/17 07:53 Dose: 40 mg Famotidine (Pepcid) 20 mg PO Q12H [facility] Last Admin: 04/06/17 06:40 Dose: Not Given Famotidine (Pepcid) 20 mg IVPUSH ONETIME ONE Stop: 04/06/17 04:48 Last Admin: 04/06/17 06:12 Dose: 20 mg Famotidine (Pepcid) 20 mg IVPUSH BID [facility] Last Admin: 04/07/17 08:41 Dose: 20 mg Folic Acid (Folic Acid) 1 mg PO ONETIME ONE Stop: 04/06/17 04:41 Last Admin: 04/06/17 06:13 Dose: 1 mg Folic Acid (Folic Acid) 1 mg PO DAILY TEDDY Sodium Chloride (Normal Saline) 1,000 mls @ 999 mls/hr IV ONETIME TEDDY Last Admin: 04/05/17 23:09 Dose: 999 mls/hr Sodium Chloride (Normal Saline) 1,000 mls @ 999 mls/hr IV ONETIME TEDDY Last Admin: 04/06/17 00:57 Dose: 999 mls/hr Sodium Chloride (Normal Saline) 1,000 mls @ 150 mls/hr IV ASDIRECTED [facility] Sodium Chloride (Normal Saline) 1,000 mls @ 250 mls/hr IV ASDIRECTED [facility] Last Admin: 04/06/17 12:32 Dose: 250 mls/hr Propofol (Diprivan 100 Ml) Confirm Administered Dose 100 mls @ as directed .ROUTE .STK-MED ONE Stop: 04/06/17 11:02 Last Admin: 04/06/17 12:44 Dose: Not Given Magnesium Sulfate 2 gm/ Premix 50 mls @ 25 mls/hr IV ONETIME ONE Stop: 04/06/17 15:38 Last Admin: 04/06/17 13:48 Dose: 25 mls/hr Dextrose/Sodium Chloride (Dextrose 5%-Normal Saline) 1,000 mls @ 250 mls/hr IV ASDIRECTED [facility] Last Admin: 04/07/17 04:22 Dose: 250 mls/hr Thiamine HCl 100 mg/ Sodium (Chloride) 101 mls @ 200 mls/hr IV DAILY ONE Stop: 04/06/17 18:03 Last Admin: 04/06/17 18:37 Dose: 200 mls/hr Pantoprazole Sodium 80 mg/ (Sodium Chloride) 100 mls @ 8 mls/hr IV Q10H [facility] Last Admin: 04/07/17 19:52 Dose: 8 mls/hr Dextrose/Sodium Chloride (Dextrose 5%-Normal Saline) 1,000 mls @ 50 mls/hr IV ASDIRECTED [facility] Last Infusion: 04/08/17 07:55 Dose: 125 mls/hr Pantoprazole Sodium 80 mg/ (Sodium Chloride) 100 mls @ 8 mls/hr IV ASDIRECTED TEDDY Last Admin: 04/08/17 21:04 Dose: 8 mls/hr Piperacillin Sod/Tazobactam (Sod 4.5 gm/ Sodium Chloride) 100 mls @ 200 mls/hr IV ONETIME ONE Stop: 04/08/17 10:29 Last Admin: 04/08/17 10:51 Dose: 200 mls/hr Dextrose/Sodium Chloride (Dextrose 5%-Normal Saline) 1,000 mls @ 125 mls/hr IV ASDIRECTED TEDDY Last Admin: 04/08/17 21:17 Dose: 125 mls/hr Sodium Chloride (Normal Saline) 500 mls @ 999 mls/hr IV .BOLUS ONE Stop: 04/08/17 18:16 Last Admin: 04/08/17 17:53 Dose: 999 mls/hr Midazolam HCl 50 mg/ Sodium (Chloride) 50 mls @ 1 mls/hr IV TITRATE TEDDY; 1 MG/ HR PRN Reason: Protocol Sodium Chloride (Normal Saline) Confirm Administered Dose 50 mls @ as directed .ROUTE .STK-MED ONE Stop: 04/08/17 20:29 Last Admin: 04/08/17 21:09 Dose: 50 ml Potassium Chloride 10 meq/ (Premix) 100 mls @ 100 mls/hr IV Q1H TEDDY Stop: 04/09/17 02:59 Last Admin: 04/09/17 01:27 Dose: 100 mls/hr Lorazepam (Ativan) 1 mg IVPUSH ONETIME ONE Stop: 04/06/17 00:08 Last Admin: 04/06/17 00:15 Dose: 1 mg Lorazepam (Ativan) 1 mg IVPUSH Q4H PRN PRN Reason: Anxiety Last Admin: 04/06/17 04:00 Dose: 1 mg Magnesium Oxide (Magnesium Oxide) 400 mg PO ONETIME ONE Stop: 04/06/17 07:16 Last Admin: 04/06/17 07:30 Dose: Not Given Magnesium Oxide (Magnesium Oxide) 400 mg PO ONETIME ONE Stop: 04/10/17 08:16 Last Admin: 04/10/17 08:16 Dose: 400 mg Midazolam HCl (Versed 1 Mg/Ml) 5 mg IVPUSH ONETIME ONE Stop: 04/06/17 12:52 Last Admin: 04/06/17 11:13 Dose: 5 mg Midazolam HCl (Versed 1 Mg/Ml) 5 mg .ROUTE .STK-MED ONE Stop: 04/06/17 14:01 Midazolam HCl (Versed 1 Mg/Ml) Confirm Administered Dose 20 mg .ROUTE .STK-MED ONE Stop: 04/08/17 20:19 Last Admin: 04/08/17 21:05 Dose: 20 mg Midazolam HCl (Versed 1 Mg/Ml) Confirm Administered Dose 30 mg .ROUTE .STK-MED ONE Stop: 04/08/17 20:29 Last Admin: 04/08/17 21:05 Dose: 30 mg Midazolam HCl (Versed 1 Mg/Ml) 50 mg IV ASDIRECTED PRN PRN Reason: Sedation Modafinil (Provigil) 200 mg PO DAILY [facility] Last Admin: 04/09/17 09:17 Dose: 200 mg Multivitamins (Thera) 1 each PO ONETIME ONE Stop: 04/06/17 04:41 Last Admin: 04/06/17 06:13 Dose: 1 each Pneumococcal Polyvalent Vaccine (Pneumovax 23) 0.5 ml SUBCUT .ONCE ONE Stop: 04/06/17 06:05 Last Admin: 04/06/17 06:41 Dose: Not Given Potassium Chloride (Klor-Con M20) 40 meq PO Q4H [facility] Stop: 04/10/17 12:16 Last Admin: 04/10/17 11:58 Dose: 40 meq Quetiapine Fumarate (Seroquel) 50 mg PO ONETIME ONE Stop: 04/06/17 04:44 Last Admin: 04/06/17 06:13 Dose: 50 mg Quetiapine Fumarate (Seroquel) 50 mg PO ONETIME ONE Stop: 04/09/17 11:07 Last Admin: 04/09/17 13:07 Dose: Not Given Quetiapine Fumarate (Seroquel) 50 mg PO ONETIME ONE Stop: 04/09/17 17:21 Last Admin: 04/09/17 17:28 Dose: 50 mg Quetiapine Fumarate (Seroquel) 50 mg PO DAILY [facility] Last Admin: 04/10/17 08:16 Dose: 50 mg Quetiapine Fumarate (Seroquel) 25 mg PO BEDTIME [facility] Rocuronium Kitzmiller (Zemuron) 100 mg IVPUSH ONETIME ONE Stop: 04/06/17 12:52 Last Admin: 04/06/17 11:14 Dose: 100 mg Rocuronium Kitzmiller (Zemuron) 100 mg .ROUTE .STK-MED ONE Stop: 04/06/17 14:01 Thiamine HCl (Vitamin B-1) 100 mg PO BEDTIME TEDDY Thiamine HCl (Vitamin B-1) 200 mg IV ONETIME ONE Stop: 04/06/17 04:42 Last Admin: 04/06/17 06:12 Dose: 200 mg - Exam General: Reports: alert, oriented, cooperative, no acute distress HEENT: Reports: Pupils equal, Pupils reactive, EOMI, Mucous membr. moist/pink Neck: Reports: supple, trachea midline, no JVD Lungs: Reports: Clear to auscultation, Normal respiratory effort Cardiovascular: Reports: Regular Rate, Regular Rhythm Abdomen: Reports: bowel sounds present, soft, no tenderness, no distension (Male) Exam: Deferred Rectal (Males) Exam: Deferred Back Exam: Reports: Normal Inspection, Full Range of Motion Extremities: Reports: no edema, normal pulses, no tenderness/swelling, no clubbing, no cyanosis, no calf tenderness Skin: Reports: warm, dry, intact Neurological: Reports: no new focal deficit Psy/Mental Status: Reports: alert, normal affect, normal mood *Q Meaningful Use (DIS) - VTE *Q VTE Criteria *Q: - Stroke *Q Stroke Criteria *Q: - AMI *Q AMI Criteria *Q:
[2017-04-11] MEDS: Levofloxacin/Dextrose 5%-Water 750 MG in Premix Bag 1 BAG IV SCH (08:30)
[2017-04-11] MEDS: Saccharomyces Boulardii (Probiotic) 250 MG Cap PO SCH (08:30)
[2017-04-11] MEDS: Multivitamins,Therapeutic Tab PO SCH (08:30)
[2017-04-11] MEDS: Folic Acid 1 MG Tab PO SCH (08:30)
[2017-04-11] MEDS: Topiramate 25 MG Tab PO SCH (08:31)
[2017-04-11] MEDS: Thiamine 200 MG/2 ML MDV IVPUSH SCH (08:31)
[2017-04-11] MEDS: Sodium Chloride 0.9% 10 ML Syringe FLUSH PRN (08:34)
[2017-04-11 08:42] VITALS: BP 132/77
--- NOTE | 2017-04-11 09:35 | CR ---
Chest: Frontal view of the chest was obtained. Comparison: Previous chest x-ray of 04/09/17. Very minimal atelectasis seen within both lung bases. Findings within the right lung base show improvement from prior exam. Lungs otherwise are clear. Heart size and mediastinum are normal. Bony structures are unremarkable. Impression: 1. Minimal atelectasis within both lung bases. Findings are improved within the right lung base from prior study. 2. Frontal chest x-ray is otherwise unremarkable. Diagnostic code #2
[2017-04-11] MEDS ORDERED: Pneumococcal Polyvalent-23 Vaccine 0.5 ML SDV IM ONE (09:53)
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
== END 2017-04-11 12:45 | DRG 208 ==
LOC: JD.ED 22:47 → JD.ICU 04-06 01:22
PROVIDERS: ADMIT Internal Medicine; ATTEND Internal Medicine
PROC: 5A1945Z Respiratory Ventilation, 24-96 Consecutive Hours (ICD-10-PCS; principal; 2017-04-06)
PROC: 0BH17EZ Insertion of Endotracheal Airway into Trachea, Via Natural or Artificial Opening (ICD-10-PCS; 2017-04-06)
PROC: HZ2ZZZZ Detoxification Services for Substance Abuse Treatment (ICD-10-PCS; 2017-04-06)
DX: J96.00 Acute respiratory failure, unspecified whether with hypoxia or hypercapnia (principal); J69.0 Pneumonitis due to inhalation of food and vomit; F10.231 Alcohol dependence with withdrawal delirium; F32.2 Major depressive disorder, single episode, severe without psychotic features; K92.2 Gastrointestinal hemorrhage, unspecified; T60.0X2A Toxic effect of organophosphate and carbamate insecticides, intentional self-harm, initial encounter; F19.10 Other psychoactive substance abuse, uncomplicated; F17.210 Nicotine dependence, cigarettes, uncomplicated; G40.909 Epilepsy, unspecified, not intractable, without status epilepticus; Y90.0 Blood alcohol level of less than 20 mg/100 ml
CPT/HCPCS: 36415; 36600; 71010; 71010-26; 80048; 80053; 80306; 81001; 81003; 82550; 82803; 83605; 83735; 83880; 85025; 86140; 90732; 93005; 94002; 94003; 96361; 96374; 97116-GP; 97161-GP; 97166-GO; 99223; 99232; 99239; 99284; 99285-25; A9270-GY; C9113; G0009; G0480; J0461; J1200; J1650; J1956; J2060; J2250; J2405; J2543; J3010; J3360; J3411; J3475; J3480; J3490; J7030; J7040; J7042; J7050

== ENCOUNTER 2020-09-13 16:49 | Emergency (ER) | payer BC ==
[2020-09-13 18:23] VITALS: BP 191/123; PULSE 72
[2020-09-13] MEDS ORDERED: Amoxicillin/Clavulanate K 875-125 MG Tab PO ONE (18:46)
[2020-09-13] MEDS ORDERED: Acetaminophen/HYDROcodone 325-5 MG Tab PO ONE (18:46)
--- NOTE | 2020-09-13 18:54 | EDM.PDOC ---
ED HPI GENERAL MEDICAL PROBLEM - General Chief Complaint: ENT Problem Stated Complaint: DENTAL COMPLAINT Time Seen by Provider: 09/13/20 18:23 Source of Information: Reports: Patient, RN Notes Reviewed History Limitations: Reports: No Limitations - History of Present Illness INITIAL COMMENTS - FREE TEXT/NARRATIVE: Patient is a 35-year-old male who presents to the ED for evaluation of a dental complaint. The patient notes that on Monday, he noticed some pain into his left upper jaw. He is was not sure if there was some nasal discomfort or mouth discomfort. He notes that he does have bad dentition on the left upper side of his mouth that needs fixing. He notes that he has had some increased swelling to his left upper lip, left cheek and face, and down into just under his jawline. He has felt hot and cold, but has not had no discernible fever, and remains afebrile at time of triage 97.8 F. Patient states that the pain has gotten so bad at times he feels nauseous. He has been using some NSAIDs at home and they do not seem to be helping much at all. Patient has not had any difficulty swallowing nor is he having any respiratory difficulty at this time. Left Face/Facial Pain Score (Numeric/FACES): 5 - Related Data Allergies Allergy/AdvReac Type Severity Reaction Status Date / Time No Known Allergies Allergy Verified 09/10/18 23:42 Home Meds: Home Meds Omeprazole 40 mg PO DAILY #14 cap.sr 09/11/18 [Rx] Amoxicillin/Clavulanate K [Augmentin 875-125 MG] 1 tab PO BID #14 tablet 09/13/20 [Rx] Past Medical History - Past Health History Medical/Surgical History: Denies Medical/Surgical History Cardiovascular History: Reports: Hypertension, Other (See Below) Other Cardiovascular History: Enlarged L) ventricle. Psychiatric History: Reports: Anxiety, Depression - Past Surgical History GI Surgical History: Reports: Hernia Repair/Other Social & Family History - Tobacco Use Tobacco Use Status *Q: Current Every Day Tobacco User Years of Tobacco use: 15 Packs/Tins Daily: 1 - Caffeine Use Caffeine Use: Reports: Coffee - Recreational Drug Use Recreational Drug Use: No ED ROS ENT - Review of Systems Review Of Systems: Comprehensive ROS is negative, except as noted in HPI. ED EXAM, ENT - Physical Exam Exam: See Below Exam Limited By: No Limitations General Appearance: Alert, WD/WN, No Apparent Distress Mouth/Throat: Normal Inspection, Normal Gums, Normal Lips, Normal Oropharynx, Dental Pain (To left upper incisor, he states this is the source of his pain, there is a cavity in this area. His dentition in general is in fairly poor repair.). No: Throat Pain, Tonsillar Erythema, Tonsillar Swelling Head: Atraumatic, Normocephalic Neck: Normal Inspection, Supple, Full Range of Motion, Tender Midline (Into the anterior neck, just under the left mandible.) Respiratory/Chest: No Respiratory Distress, Lungs Clear, Normal Breath Sounds, No Accessory Muscle Use, Chest Non-Tender Cardiovascular: Normal Peripheral Pulses, Regular Rate, Rhythm, No Murmur Extremities: Normal Inspection, Normal Capillary Refill Neurological: Alert, Oriented, Normal Cognition, No Motor/Sensory Deficits Psychiatric: Normal Affect, Normal Mood Skin: Warm, Dry, Intact, Normal Color, No Rash Course - Vital Signs Last Recorded V/S: Last Vital Signs Temp 97.8 F 09/13/20 18:20 Pulse 72 09/13/20 18:20 Resp 16 09/13/20 18:20 BP 191/123 H 09/13/20 18:20 Pulse Ox 95 09/13/20 18:20 - Orders/Labs/Meds Meds: Medications Discontinued Medications Generic Name Dose Route Start Last Admin Trade Name Nicloás PRN Reason Stop Dose Admin Hydrocodone Bitart/Acetaminophen 2 tab 09/13/20 18:46 [place] 325-5 Mg PO 09/13/20 18:47 ONETIME ONE Amoxicillin/Clavulanate Potassium 1 tab 09/13/20 18:46 Augmentin 875 Mg/125 Mg PO 09/13/20 18:47 ONETIME ONE - Re-Assessments/Exams Free Text/Narrative Re-Assessment/Exam: 09/13/20 18:53 Patient presents to the ED for evaluation of his ongoing dental complaint. We will get him something for pain management and get him started on antibiotics in the ER, and get him discharged with general recommendations. Departure - Departure Time of Disposition: 18:53 Disposition: Home, Self-Care 01 Condition: Good Clinical Impression: Pain, dental - Discharge Information *PRESCRIPTION DRUG MONITORING PROGRAM REVIEWED*: Yes *COPY OF PRESCRIPTION DRUG MONITORING REPORT IN PATIENT VAISHALI: No Prescriptions: Amoxicillin/Clavulanate K [Augmentin 875-125 MG] 1 tab PO BID #14 tablet Instructions: Preventive Dental Care, Adult Referrals: PCP,None [Primary Care Provider] - Additional Instructions: You have been evaluated in the ED for your dental pain. You have been provided with a script for Augmentin. This was electronically sent to the [facility] pharmacy located on [address]. Please take this medication as directed. (1 tab twice daily for 7 days or until gone). Your first dose was given in the ER today. Please note this antibiotic can take up to 48 hours to provide coverage. If you do not notice an improvement in the swelling within 3 days time I recommend you seek care for reevaluation for change in antibiotics. This antibiotic can cause diarrhea, recommend that you start a probiotic while taking this medication. Aleve provides good pain relief for dental pain. Please take 1-2 tabs twice daily as needed for pain. You were given a prescription for a strong pain medication, hydrocodone/acetaminophen 5/325 mg, please take 1 tab every 6 hours as needed for pain not relieved by Tylenol or ibuprofen alone. Please note this medication does contain Tylenol in it, so do not take more than 4000 mg in a 24- hour time span. These medications can be addictive, so please take as few as possible to achieve adequate pain control. These meds can also be quite consti pating, recommend that you increase your oral fluid intake and take a stool softener like MiraLAX while taking these medications. Do not drive while taking this medication. You may use hot pack/ ice packs to the affected area as tolerated in 15-20 minute intervals. You will ultimately need to find a dentist to provide definitive management of your dental pain. The [facility] in [place], [place], , is a clinic that has been known to take people that do not have dental insurance, and may provide payment plans. You might want to check with this provider, regarding your dental pain. Please return to the ED if your symptoms change or worsen. Sepsis Event Note (ED) - Evaluation Sepsis Screening Result: No Definite Risk - Focused Exam Vital Signs: Vital Signs Temp Pulse Resp BP Pulse Ox 09/13/20 18:20 97.8 F 72 16 191/123 H 95
== END 2020-09-13 19:23 | disposition home or self-care (01) ==
LOC: JD.ED 16:49
DX: K02.9 Dental caries, unspecified (principal); F17.210 Nicotine dependence, cigarettes, uncomplicated; I10 Essential (primary) hypertension; Z79.899 Other long term (current) drug therapy
CPT/HCPCS: 99282; A9270; 99283